=== PATIENT | male | born 1960 | race Caucasian/White ===

== ENCOUNTER 2022-03-06 14:50 | Emergency (ER) | payer OTHER ==
--- OUTSIDE RECORDS SUMMARY | 2022-03-06 15:02 | XMS REPORT | Continuity of Care Document ---
:1960 Author Organization [facility] t Address [address] [place] [address] Care Team Providers Name Role Phone Grupo Concepcion Primary Care Physician Unavailable ZI ANDREW Attending Clinician Unavailable ZI ANDREW Attending Clinician Unavailable JENNIFER ISAAC Attending Clinician Unavailable Jennifer Burrell Attending Clinician HARSH LLOYD Attending Clinician Unavailable Edouard Ponce Attending Clinician Unavailable CLAUDY STOCKTON Attending Clinician Unavailable Claudy Parra Attending Clinician Tc Perkins Attending Clinician Unavailable Chao Aguilar Attending Clinician Unavailable Tavo Otero Attending Clinician Unavailable Joan Carmen Attending Clinician Unavailable MARISABEL ORTIZ Attending Clinician Unavailable Alexa Mooer DO Attending Clinician Jenni ARAMBULA, Demetria Attending Clinician DEMETRIA THAYER Attending Clinician Unavailable Rebecca Hylton RN Attending Clinician Unavailable ARIES SEAY Attending Clinician Unavailable Neli Luciano Attending Clinician Unavailable Pita Madrid Attending Clinician Unavailable LEONARDO AVILA Attending Clinician Unavailable LEONARDO AVILA Attending Clinician Unavailable MEAGHAN RODRIGUEZ Attending Clinician Unavailable Meaghan Trevino Attending Clinician ZOHRA BOWER Attending Clinician Unavailable Zohra Bower MD Attending Clinician MAHESH NICOLAS Attending Clinician Unavailable Mahesh Nicolas MD Attending Clinician CURTIS BEE Attending Clinician Unavailable CURTIS BEE Attending Clinician Unavailable Jovanna Attending Clinician Unavailable Aries Seay MD Attending Clinician KEVIN ERICKSON Attending Clinician Unavailable Kevin Erickson MD Attending Clinician NAVJOT ABBOTT Attending Clinician Unavailable Navjot Abbott MD Attending Clinician David Noguera Attending Clinician Unavailable Charli Traore Attending Clinician Unavailable Tc Talavera Attending Clinician Unavailable Gypsy Brown Attending Clinician Unavailable ALEXANDER SCHAFER Attending Clinician Unavailable Alexander Schafer MD Attending Clinician Erik Alvarez RN Attending Clinician Unavailable JEFF BLANCO Attending Clinician Unavailable Jeff Fritz Attending Clinician ARMANDO HERNANDEZ Attending Clinician Unavailable Armando Hernandez MD Attending Clinician MIL CURRAN Attending Clinician Unavailable Mil Mora Attending Clinician Carlos Alberto Canales Attending Clinician Unavailable Rhona Pittman Attending Clinician Unavailable Afuwape, Lukuman O Attending Clinician Unavailable RAY FRIEND Attending Clinician Unavailable Afuwape, Lukuman O Attending Clinician Unavailable Afuwape, Lukuman O Attending Clinician Unavailable HEBER BUSH Attending Clinician Unavailable UNKNOWN, ATTENDING Attending Clinician Unavailable FAB WRIGHT Attending Clinician Unavailable ALANA ZHAO Attending Clinician Unavailable Davonte Smalls Attending Clinician Unavailable JENNIFER ISAAC Admitting Clinician Unavailable Karla Lombardo Admitting Clinician Unavailable ALEXA MOORE Admitting Clinician Unavailable LEONARDO AVILA Admitting Clinician Unavailable MEAGHAN RODRIGUEZ Admitting Clinician Unavailable CURTIS BEE Admitting Clinician Unavailable Jovanna Admitting Clinician Unavailable KEVIN ERICKSON Admitting Clinician Unavailable Physician, No Primary or Family Admitting Clinician UnavailARMANDO Torrez Admitting Clinician Unavailable JEFF BLANCO Admitting Clinician Unavailable Min, Lukuman O Admitting Clinician Unavailable HEBER BUSH Admitting Clinician Unavailable FAB WRIGHT Admitting Clinician Unavailable ALANA ZHAO Admitting Clinician Unavailable Davonte Smalls Admitting Clinician Unavailable Payers Payer Name Policy Type Policy Number Effective Date Expiration Date daina [facility] [id number] 2014 00:00:00 Problems Condition Condition Condition Status Onset Resolution Last Treating Co mments Source Name Details Category Date Date Treatment Clinician Date Obesity Obesity Disease Active 2017-03 Univers (BMI (BMI 1-26 ity of 30-39.9) 30-39.9) 00:00: [place] 00 Medical Branch Other Other Disease Active Univers specified specified 2-19 ity of types of types of 00:00: [place] schizophre schizophre 00 Me dical rylan, rylan, Branch chronic chronic condition condition with acute with acute exacerbati exacerbati on on Essential Essential Disease Active Overview: Univers hypertensi hypertensi 2-19 [place] ity of on on 00:00: g of this [place] 00 note Medical might be Branch different from the original. ICD10 Diagnosis Term Acquisition Specialist Utility Allergies, Adverse Reactions, Alerts Allergy Allergy Status Severity Reaction(s) Onset Inactive Treating Comm ents Source Name Type Date Date Clinician aspirin DA Active [place] STOMACH 2021-1 [facility] 1-28 Clear 00:00: [place] 00 [facility] aspirin DA Active [place] STOMACH 2021-03 [facility] UPSET 1-18 Clear 00:00: [place] 00 [facility] aspirin DA Active [place] STOMACH 2021- [facility] UPSET 1-15 [place] 00:00: d 00 [facility] aspirin DA Active [place] STOMACH 2021- [facility] UPSET 0-25 Clear 00:00: [place] 00 [facility] aspirin DA Active [place] STOMACH 2021-0 [facility] UPSET 9-12 Clear 00:00: [place] 00 [facility] aspirin DA Active [place] STOMACH 2021-0 [facility] UPSET 8-14 [place] 00:00: d 00 [facility] aspirin DA Active U V[facility] 2021-0 [facility] aspirin DA Active U Vomiting 2021-0 [facility] 6-08 00:00: 00 aspirin DA Active U Unknown 2021-0 [facility] 00 aspirin DA Active [place] STOMACH 2019-0 [facility] UPS[facility] 2-05 Clear 00:00: [place] 00 [facility] aspirin DA Active [place] 2019-0 [facility] 2-05 [place] 00:00: d 00 [facility] aspirin DA Active [place] 2017- [facility] 2-12 [place] 00:[facility]: d [facility] ASPIRIN DRUG Active Anaphylaxis 2006- Univ ers INGREDI 10-11 ity of 00:00: [place] 00 Medical Branch Aspirin Propensi Active Anaphylaxis Patient U nivers ty to 10-11 has been ity of adverse 00:00: given [place] reaction 00 NSAIDS Medical s including Branch Naproxen/ Ibuprofen in the past without allergic reaction. aspirin Drug Active [facility] Tylenol Drug Active [facility] aspirin Drug Active [facility] Tylenol Drug Active [facility] aspirin Drug Active [facility] Tylenol Drug Active [facility] aspirin Drug Active [facility] Tylenol Drug Active [facility] Social History Social Habit Start Date Stop Date Quantity Comments Source History of tobacco Cigarette Smoker University of use [place] [facility] History SDOH University o f Alcohol Frequency [place] M edical Branch History SDNE University o f Alcohol Std Drinks [place] [facility] History [facility] o f Alcohol Binge [place] [facility] al Branch Exposure to 2022-02-22 2022-03-04 Not sure University SARS-CoV-2 (event) 00:00:00 02:34:00 [facility] Alcohol intake 2022-03-04 2022-03-04 Current drinker Unive rsity of 00:00:00 00:00:00 of alcohol [facility] (finding) Branch Cigarettes smoked 2017-08-12 2017-08-12 [facility] ity of current (pack per 00:00:00 00:00:[address] 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 Clinician (SIG) Name Name acetaminorosey 2021-03 650mg 650 mg, U nivers en 03-04 Oral, ity of (TYLENOL) 10:45: 11:07 [place]CE[place] 650 00 :00 dose, On Medic al mg [place] [facility] 03/04/22 at 0445, ANTONIO bacitracin 2021-03 Yes [id number] Apply to Univers 500 2-10 affected ity of unit/gram 00:00: area(s) 4 [place] ointment 00 (four) Medical times Branch daily. bacitracin 2021-03 Yes [id number] Apply to Univers 500 2-10 affected ity of unit/gram 00:00: area(s) 4 [place] ointment 00 (four) Medical times Branch daily. bacitracin 2021-03 Yes [id number] Apply to Univers 500 2-10 affected ity of unit/gram 00:00: area(s) 4 [place] ointment 00 (four) Medical times Branch daily. amoxicillin 2021-03- No 1{tbl} 1 tablet, Univers -clavulanat 04-08 Oral, ity of e 03:15: 02:35 ONCE, 1 [place] (AUGMENTIN) 00 :00 dose, On Medi klever 875-125 mg [place] Branch per tablet 02/04/22 at 1 tablet 2114, Routine
Reason for Anti-Infec tive: Empiric Non-Surgic al Prophylaxi s
Durat ion of therapy: 72 hours acetaminoph 2021-03- No 650mg 650 mg, U nivers en 2-02-05 Oral, ity of (TYLENOL) 02:30: 02:35 [place]CE, 1 [place] tablet 650 00 :00 dose, On Medic al mg [place] Branch 02/04/22 at 2030, ANTONIO acetaminoph 2021-03 Yes [id number] 650mg Take 650 Univers en 2-01 mg by ity of (TYLENOL) 00:00: mouth 3 [place] 325 mg Cap 00 (three) Medica l times Branch daily as needed for Pain (scale 7-10). acetaminoph 2021-03 Yes [id number] 650mg Take 650 Univers en 2-01 mg by ity of (TYLENOL) 00:00: mouth 3 [place] 325 mg Cap 00 (three) Medica l times Branch daily as needed for Pain (scale 7-10). acetaminoph 2021-03 Yes [id number] 650mg Take 650 Univers en 2-01 mg by ity of (TYLENOL) 00:00: mouth 3 [place] 325 mg Cap 00 (three) Medica l times Branch daily as needed for Pain (scale 7-10). acetaminoph 2021-03 Yes [id number] 650mg Take 650 Univers en 2-01 mg by ity of (TYLENOL) 00:00: mouth 3 [place] 325 mg Cap 00 (three) Medica l times Branch daily as needed for Pain (scale 7-10). amoxicillin 2021-03- Yes [id number] 1{tbl} Take 1 Univers -clavulanat 2-02-15 tablet by it y of e 875-125 00:00: 05:59 mouth [place] mg per 00 :00 every 12 Medical tablet (twelve) Branch hours for 10 days. amoxicillin 2021-03- Yes [id number] 1{tbl} Take 1 Univers -clavulanat 2-03 18- tablet by it y of e 875-125 00:00: 05:59 mouth [place] mg per 00 :00 every 12 Medical tablet (twelve) Branch hours for 10 days. iopamidol 2021-03- No [id number] 100mL 100 mL, Univers (ISOVUE 03-12 Intravenou ity o f 370-500 mL) 23:15: 23:15 s, ONCE, 1 [place] injection 00 :00 dose, On Medica l 100 mL [facility] 01/10/22 at 1715, Routine benztropine 2021-03- No 2mg 2 mg, Univ ers (COGENTIN) 03-12 Oral, ity of tablet 2 mg 22:15: 22:59 [place]CE[place] 1 [place] :[place] dose, On Medical [place] 01/10/22 at 1615, Routine risperiDONE 2021-03- No 3mg 3 mg, Univ ers (RISPERDAL 03-12 Oral, ity of M-TAB) 21:30: 22:58 ONCE, 1 [place] disintegrat 00 :00 dose, On Medi klever ing tablet [place] Branch 3 mg 01/10/22 at 1530, ANTONIO acetaminoph 2021-03- No 650mg 650 mg, U nivers en 0-19 12-23 Oral, ity of (TYLENOL) 14:30: 16:00 ONCE, 1 [place] tablet 650 00 :00 dose, On Medic al mg Wed Branch 12/23/21 at 0930, ANTONIO lisinopriL 2021-03 Yes [id number] 20mg Take 1 U nivers 20 mg 0-19 tablet by ity of tablet 00:00: mouth in [place] 00 the Medical morning. Branch lisinopriL 2021-03 Yes [id number] 20mg Take 1 U nivers 20 mg 0-19 tablet by ity of tablet 00:00: mouth in [place] 00 the Medical morning. Branch lisinopriL 2021-03 Yes [id number] 20mg Take 1 U nivers 20 mg 0-19 tablet by ity of tablet 00:00: mouth in [place] 00 the Medical morning. [place] lisinopriL 2021-03 Yes [id number] 20mg Take 1 U nivers 20 mg 0-19 tablet by ity of tablet 00:00: mouth in [place] 00 the Medical morning. [place] lisinopriL 2021-03 Yes [id number] 20mg Take 1 U nivers 20 mg 0-19 tablet by ity of tablet 00:00: mouth in [place] 00 the Medical morning. [place] lisinopriL 2021-03 Yes [id number] 20mg Take 1 U nivers 20 mg 0-19 tablet by ity of tablet 00:00: mouth in [place] 00 the Medical morning. [place] lisinopriL 2021-03 Yes [id number] 20mg Take 1 U nivers 20 mg 0-19 tablet by ity of tablet 00:00: mouth in [place] 00 the Medical morning. [place] haloperidol 2021-03- 5mg 5 mg, Univ ers lactate 0-15 10-15 Intramuscu ity o f (HALDOL) 11:30: 11:03 [place]CE, [place] injection 5 00 :00 1 dose, On Me dical mg Sat [place] 12/19/21 at 0630, Routine divalproex 2021-03 Yes [id number] 250mg Take 1 Univers ER 0-15 tablet by ity of (DEPAKOTE 00:00: mouth [place] ER) 250 mg 00 every 24 Medic al 24 hr (twenty-fo Branch tablet ur) hours. divalproex 2021-03 Yes [id number] 250mg Take 1 Univers ER 0-15 tablet by ity of (DEPAKOTE 00:00: mouth [place] ER) 250 mg 00 every 24 Medic al 24 hr (twenty-fo Branch tablet ur) hours. divalproex 2021-03 Yes [id number] 250mg Take 1 Univers ER 0-15 tablet by ity of (DEPAKOTE 00:00: mouth [place] ER) 250 mg 00 every 24 Medic al 24 hr (twenty-fo Branch tablet ur) hours. divalproex 2021-03 Yes [id number] 250mg Take 1 Univers ER 0-15 tablet by ity of (DEPAKOTE 00:00: mouth [place] ER) 250 mg 00 every 24 Medic al 24 hr (twenty-fo Branch tablet ur) hours. divalproex 2021-03 Yes [id number] 250mg Take 1 Univers ER 0-15 tablet by ity of (DEPAKOTE 00:00: mouth [place] ER) 250 mg 00 every 24 Medic al 24 hr (twenty-fo Branch tablet ur) hours. divalproex 2021-03 Yes [id number] 250mg Take 1 Univers ER 0-15 tablet by ity of (DEPAKOTE 00:00: mouth [place] ER) 250 mg 00 every 24 Medic al 24 hr (twenty-fo Branch tablet ur) hours. lisinopriL 2021-03 Yes [id number] 20mg Take 1 U nivers 20 mg 0-15 tablet by ity of tablet 00:00: mouth in [place] 00 the Medical morning. Branch divalproex 2021-03 Yes [id number] 250mg Take 1 Univers ER 0-15 tablet by ity of (DEPAKOTE 00:00: mouth [place] ER) 250 mg 00 every 24 Medic al 24 hr (twenty-fo Branch tablet ur) hours. lisinopriL 2021-03 Yes [id number] 20mg Take 1 U nivers 20 mg 0-15 tablet by ity of tablet 00:00: mouth in [place] 00 the Medical morning. Branch divalproex 2021-03 Yes [id number] 250mg Take 1 Univers ER 0-15 tablet by ity of (DEPAKOTE 00:00: mouth [place] ER) 250 mg 00 every 24 Medic al 24 hr (twenty-fo Branch tablet ur) hours. divalproex 2021-03 Yes [id number] 250mg Take 1 Univers ER 0-15 tablet by ity of (DEPAKOTE 00:00: mouth [place] ER) 250 mg 00 every 24 Medic al 24 hr (twenty-fo Branch tablet ur) hours. lisinopriL 2021-03- No [id number] 20mg Take 1 Univers 20 mg 0-15 10-19 tablet by ity of tablet 00:00: 00:00 mouth in [place] 00 :00 the Medical morning. Branch acetaminoph 2021-03- No 1000mg 1,000 mg, Univers en 0-11 10-11 Oral, ity of (TYLENOL) 07:15: 07:48 ONCE, 1 [place] tablet 00 :00 dose, On Medical 1,000 mg Tue Branch 12/15/21 at 0215, ANTONIO acetaminoph 2021-03- No 1000mg 1,000 mg, Univers en 0-12-12 Oral, ity of (TYLENOL) 02:00: 02:32 ONCE, 1 [place] tablet 00 :00 dose, On Medical 1,000 mg Fri Branch 12/11/21 at 2100, Routine naproxen 2021-03- No 250mg 250 mg, Univ ers (NAPROSYN) 012-12 Oral, ity of tablet 250 01:45: 02:33 ONCE, 1 [place] mg 00 :00 dose, On Medical Fri Branch 12/11/21 at 2045, Routine naproxen 2021-03 Yes [id number] 220mg Take 1 Univers sodium 220 0-07 4106 capsule by ity of mg capsule 00:00: mouth in [place] 00 the Medical morning Branch and 1 capsule in the evening. naproxen 2021-03 Yes [id number] 220mg Take 1 Univers sodium 220 0-07 4106 capsule by ity of mg capsule 00:00: mouth in [place] 00 the Medical morning Branch and 1 capsule in the evening. naproxen 2021-03 Yes [id number] 220mg Take 1 Univers sodium 220 0-07 4106 capsule by ity of mg capsule 00:00: mouth in [place] 00 the Medical morning Branch and 1 capsule in the evening. naproxen 2021-03 Yes [id number] 220mg Take 1 Univers sodium 220 0-07 4106 capsule by ity of mg capsule 00:00: mouth in [place] 00 the Medical morning Branch and 1 capsule in the evening. naproxen 2021-03 Yes [id number] 220mg Take 1 Univers sodium 220 0-07 4106 capsule by ity of mg capsule 00:00: mouth in [place] 00 the Medical morning Branch and 1 capsule in the evening. naproxen 2021-03 Yes [id number] 220mg Take 1 Univers sodium 220 0-07 4106 capsule by ity of mg capsule 00:00: mouth in [place] 00 the Medical morning Branch and 1 capsule in the evening. naproxen 2021-03 Yes [id number] 220mg Take 1 Univers sodium 220 0-07 4106 capsule by ity of mg capsule 00:00: mouth in [place] 00 the Medical morning Branch and 1 capsule in the evening. naproxen 2021-03 Yes [id number] 220mg Take 1 Univers sodium 220 0-07 4106 capsule by ity of mg capsule 00:00: mouth in [place] 00 the Medical morning Branch and 1 capsule in the evening. naproxen 2021-03 Yes [id number] 220mg Take 1 Univers sodium 220 0-07 4106 capsule by ity of mg capsule 00:00: mouth in [place] 00 the Medical morning Branch and 1 capsule in the evening. naproxen 2021-03 Yes [id number] 220mg Take 1 Univers sodium 220 0-07 4106 capsule by ity of mg capsule 00:00: mouth in [place] 00 the Medical morning Branch and 1 capsule in the evening. naproxen 2021-03 Yes [id number] 220mg Take 1 Univers sodium 220 0-07 4106 capsule by ity of mg capsule 00:00: mouth in [place] 00 the Medical morning Branch and 1 capsule in the evening. mupirocin Yes Univers (BACTROBAN 12-01 ity of OINT) 2 % 13:00: skin 00 Medical ointment Branch HYDROcodone 2021- No 1{tbl} 1 tablet, Univers -acetaminop 12-01 Oral, ity of hen (NORCO 09:00: 09:43 ONCE, 1 [place] 5) 5-325 mg 00 :00 dose, On Medi klever tablet 1 Tue Branch tablet 12/01/21 at 0400, ANTONIO traMADoL 50 Yes [id number] 100mg Take 2 Uni vers mg tablet 9-27 tablets by ity of 00:00: mouth [place] 00 every 8 Medical (eight) Branch hours as needed for Pain (scale 7-10). Indication s: acute pain clotrimazol Yes [id number] Apply to Univers e 1 % -27 area(s) at ity of topical 00:00: bedtime. [place] cream 00 Apply to Medical low back Branch rash traMADoL 50 2021-0 Yes [id number] 100mg Take 2 Uni vers mg tablet -27 tablets by ity of 00:00: mouth [place] 00 every 8 Medical (eight) Branch hours as needed for Pain (scale 7-10). Indication s: acute pain clotrimazol 2021-0 Yes [id number] Apply to Univers e 1 % 9-27 area(s) at ity of topical 00:00: bedtime. [place] cream 00 Apply to Medical low back Branch rash traMADoL 50 2021-0 Yes [id number] 100mg Take 2 Uni vers mg tablet 9-27 tablets by ity of 00:00: mouth [place] 00 every 8 Medical (eight) Branch hours as needed for Pain (scale 7-10). Indication s: acute pain clotrimazol 2021-0 Yes [id number] Apply to Univers e 1 % 9-27 area(s) at ity of topical 00:00: bedtime. [place] cream 00 Apply to Medical low back Branch rash traMADoL 50 2021-0 Yes [id number] 100mg Take 2 Uni vers mg tablet 9-27 tablets by ity of 00:00: mouth [place] 00 every 8 Medical (eight) Branch hours as needed for Pain (scale 7-10). Indication s: acute pain clotrimazol 2021-0 Yes [id number] Apply to Univers e 1 % 9-27 area(s) at ity of topical 00:00: bedtime. [place] cream 00 Apply to Medical low back Branch rash traMADoL 50 2021-0 Yes [id number] 100mg Take 2 Uni vers mg tablet 9-27 tablets by ity of 00:00: mouth [place] 00 every 8 Medical (eight) Branch hours as needed for Pain (scale 7-10). Indication s: acute pain clotrimazol 2021-0 Yes [id number] Apply to Univers e 1 % 9-27 area(s) at ity of topical 00:00: bedtime. [place] cream 00 Apply to Medical low back Branch rash traMADoL 50 2021-0 Yes [id number] 100mg Take 2 Uni vers mg tablet 9-27 tablets by ity of 00:00: mouth [place] 00 every 8 Medical (eight) Branch hours as needed for Pain (scale 7-10). Indication s: acute pain clotrimazol 2021-0 Yes [id number] Apply to Univers e 1 % 9-27 area(s) at ity of topical 00:00: bedtime. [place] cream 00 Apply to Medical low back Branch rash traMADoL 50 2021-0 Yes [id number] 100mg Take 2 Uni vers mg tablet 9-27 tablets by ity of 00:00: mouth [place] 00 every 8 Medical (eight) Branch hours as needed for Pain (scale 7-10). Indication s: acute pain clotrimazol 2021-0 Yes [id number] Apply to Univers e 1 % 9-27 area(s) at ity of topical 00:00: bedtime. [place] cream 00 Apply to Medical low back Branch rash traMADoL 50 2021-0 Yes [id number] 100mg Take 2 Uni vers mg tablet 9-27 tablets by ity of 00:00: mouth [place] 00 every 8 Medical (eight) Branch hours as needed for Pain (scale 7-10). Indication s: acute pain clotrimazol 0 Yes [id number] Apply to Univers e 1 % 9-27 area(s) at ity of topical 00:00: bedtime. [place] cream 00 Apply to Medical low back Branch rash traMADoL 50 2021-0 Yes [id number] 100mg Take 2 Uni vers mg tablet 9-27 tablets by ity of 00:00: mouth [place] 00 every 8 Medical (eight) Branch hours as needed for Pain (scale 7-10). Indication s: acute pain clotrimazol 0 Yes [id number] Apply to Univers e 1 % 9-27 area(s) at ity of topical 00:00: bedtime. [place] cream 00 Apply to Medical low back Branch rash traMADoL 50 2021-0 Yes [id number] 100mg Take 2 Uni vers mg tablet 9-27 tablets by ity of 00:00: mouth [place] 00 every 8 Medical (eight) Branch hours as needed for Pain (scale 7-10). Indication s: acute pain clotrimazol 2021-0 Yes [id number] Apply to Univers e 1 % 9-27 area(s) at ity of topical 00:00: bedtime. [place] cream 00 Apply to Medical low back Branch rash traMADoL 50 2021-0 Yes [id number] 100mg Take 2 Uni vers mg tablet 9-27 tablets by ity of 00:00: mouth [place] 00 every 8 Medical (eight) Branch hours as needed for Pain (scale 7-10). Indication s: acute pain clotrimazol 2021-0 Yes [id number] Apply to Univers e 1 % 9-27 area(s) at ity of topical 00:00: bedtime. [place] cream 00 Apply to Medical low back Branch rash traMADoL 50 2021-0 Yes [id number] 100mg Take 2 Uni vers mg tablet 9-27 tablets by ity of 00:00: mouth [place] 00 every 8 Medical (eight) Branch hours as needed for Pain (scale 7-10). Indication s: acute pain clotrimazol 2021-0 Yes [id number] Apply to Univers e 1 % 9-27 area(s) at ity of topical 00:00: bedtime. [place] cream 00 Apply to Medical low back Branch rash traMADoL 50 2021-0 Yes [id number] 100mg Take 2 Uni vers mg tablet 9-27 tablets by ity of 00:00: mouth [place] 00 every 8 Medical (eight) Branch hours as needed for Pain (scale 7-10). Indication s: acute pain clotrimazol 2021-0 Yes [id number] Apply to Univers e 1 % 9-27 area(s) at ity of topical 00:00: bedtime. [place] cream 00 Apply to Medical low back Branch rash traMADoL 50 2021-0 Yes [id number] 100mg Take 2 Uni vers mg tablet 9-27 tablets by ity of 00:00: mouth [place] 00 every 8 Medical (eight) Branch hours as needed for Pain (scale 7-10). Indication s: acute pain clotrimazol 2021-0 Yes [id number] Apply to Univers e 1 % 9-27 area(s) at ity of topical 00:00: bedtime. [place] cream 00 Apply to Medical low back Branch rash traMADoL 50 2021-0 Yes [id number] 100mg Take 2 Uni vers mg tablet 9-27 tablets by ity of 00:00: mouth [place] 00 every 8 Medical (eight) Branch hours as needed for Pain (scale 7-10). Indication s: acute pain clotrimazol 2021-0 Yes [id number] Apply to Univers e 1 % 9-27 area(s) at ity of topical 00:00: bedtime. [place] cream 00 Apply to Medical low back Branch rash traMADoL 50 2021-0 Yes [id number] 100mg Take 2 Uni vers mg tablet 9-27 tablets by ity of 00:00: mouth [place] 00 every 8 Medical (eight) Branch hours as needed for Pain (scale 7-10). Indication s: acute pain clotrimazol Yes [id number] Apply to Univers e 1 % 9-27 area(s) at ity of topical 00:00: bedtime. [place] cream 00 Apply to Medical low back Branch rash traMADoL 50 Yes [id number] 100mg Take 2 Uni vers mg tablet 9-27 tablets by ity of 00:00: mouth [place] 00 every 8 Medical (eight) Branch hours as needed for Pain (scale 7-10). Indication s: acute pain clotrimazol Yes [id number] Apply to Univers e 1 % 9-27 area(s) at ity of topical 00:00: bedtime. [place] cream 00 Apply to Medical low back Branch rash cyclobenzap 2021- No 10mg 10 mg, Uni vers rine 11-25 Oral, ity of (FLEXERIL) 11:30: 10:28 ONCE, 1 [place] tablet 10 00 :00 dose, On Medica l mg Wed Branch 11/25/21 at 0630, ANTONIO traMADoL 50 Yes [id number] 100mg Take 2 Uni vers mg tablet 9-21 tablets by ity of 00:00: mouth [place] 00 every 8 Medical (eight) Branch hours as needed for Pain (scale 7-10). Indication s: acute pain cyclobenzap 2021- No [id number] 10mg Take 1 [facility] rine 10 mg 11-25 [id number] tablet by ity of tablet 00:00: 04:59 mouth in [place] 00 :00 the Medical morning Branch and 1 tablet at noon and 1 tablet in the evening. Do all this for 5 days. traMADoL 50 2021- No [id number] 100mg Take 2 [facility] mg tablet 11-25 tablets by ity of 00:00: 00:00 mouth [place] 00 :00 every 8 Medical (eight) Branch hours as needed for Pain (scale 7-10). Indication s: acute pain Carisoprodo Yes [id number] 250mg Take 1 [facility] l ([facility]) 9-17 tablet by ity of 250 mg 00:00: mouth [place] tablet 00 every 8 Medical (eight) Branch hours as needed (muscle spasms). acetaminoph Yes [id number] 1000mg Take 2 [facility] en 500 mg 9-17 tablets by ity of tablet 00:00: mouth [place] 00 every 8 Medical (eight) Branch hours as needed for Pain. Carisoprodo 2022-0 Yes [id number] 250mg Take 1 [facility] ([facility]) 9-17 tablet by ity of 250 mg 00:00: mouth [place] tablet 00 every 8 Medical (eight) Branch hours as needed (muscle spasms). acetaminoph 2022-0 Yes [id number] 1000mg Take 2 [facility] en 500 mg 9-17 tablets by ity of tablet 00:00: mouth [place] 00 every 8 Medical (eight) Branch hours as needed for Pain. Carisoprodo 2022-0 Yes [id number] 250mg Take 1 [facility] ([facility]) 9-17 tablet by ity of 250 mg 00:00: mouth [place] tablet 00 every 8 Medical (eight) Branch hours as needed (muscle spasms). acetaminoph 2022-0 Yes [id number] 1000mg Take 2 [facility] en 500 mg 9-17 tablets by ity of tablet 00:00: mouth [place] 00 every 8 Medical (eight) Branch hours as needed for Pain. Carisoprodo 2-0 Yes [id number] 250mg Take 1 [facility] l ([facility]) 9-17 tablet by ity of 250 mg 00:00: mouth [place] tablet 00 every 8 Medical (eight) Branch hours as needed (muscle spasms). acetaminoph 2022-0 Yes [id number] 1000mg Take 2 [facility] en 500 mg 9-17 tablets by ity of tablet 00:00: mouth [place] 00 every 8 Medical (eight) Branch hours as needed for Pain. Carisoprodo 2022-0 Yes [id number] 250mg Take 1 [facility] ([facility]) 9-17 tablet by ity of 250 mg 00:00: mouth [place] tablet 00 every 8 Medical (eight) Branch hours as needed (muscle spasms). acetaminoph 2022-0 Yes [id number] 1000mg Take 2 [facility] en 500 mg 9-17 tablets by ity of tablet 00:00: mouth [place] 00 every 8 Medical (eight) Branch hours as needed for Pain. Carisoprodo 2022-0 Yes [id number] 250mg Take 1 [facility] ([facility]) 9-17 tablet by ity of 250 mg 00:00: mouth [place] tablet 00 every 8 Medical (eight) Branch hours as needed (muscle spasms). acetaminoph 2022-0 Yes [id number] 1000mg Take 2 [facility] en 500 mg 9-17 tablets by ity of tablet 00:00: mouth [place] 00 every 8 Medical (eight) Branch hours as needed for Pain. Carisoprodo 2022-0 Yes [id number] 250mg Take 1 [facility] ([facility]) 9-17 tablet by ity of 250 mg 00:00: mouth [place] tablet 00 every 8 Medical (eight) Branch hours as needed (muscle spasms). acetaminoph 2022-0 Yes [id number] 1000mg Take 2 [facility] en 500 mg 9-17 tablets by ity of tablet 00:00: mouth [place] 00 every 8 Medical (eight) Branch hours as needed for Pain. Carisoprodo 2022-0 Yes [id number] 250mg Take 1 [facility] ([facility]) 9-17 tablet by ity of 250 mg 00:00: mouth [place] tablet 00 every 8 Medical (eight) Branch hours as needed (muscle spasms). acetaminoph 2-0 Yes [id number] 1000mg Take 2 [facility] en 500 mg 9-17 tablets by ity of tablet 00:00: mouth [place] 00 every 8 Medical (eight) Branch hours as needed for Pain. Carisoprodo 2-0 Yes [id number] 250mg Take 1 [facility] ([facility]) 9-17 tablet by ity of 250 mg 00:00: mouth [place] tablet 00 every 8 Medical (eight) Branch hours as needed (muscle spasms). acetaminoph 2022-0 Yes [id number] 1000mg Take 2 [facility] en 500 mg 9-17 tablets by ity of tablet 00:00: mouth [place] 00 every 8 Medical (eight) Branch hours as needed for Pain. Carisoprodo 2022-0 Yes [id number] 250mg Take 1 [facility] ([facility]) 9-17 tablet by ity of 250 mg 00:00: mouth [place] tablet 00 every 8 Medical (eight) Branch hours as needed (muscle spasms). acetaminoph 2022-0 Yes [id number] 1000mg Take 2 [facility] en 500 mg 9-17 tablets by ity of tablet 00:00: mouth [place] 00 every 8 Medical (eight) Branch hours as needed for Pain. Carisoprodo 2022-0 Yes [id number] 250mg Take 1 [facility] ([facility]) 9-17 tablet by ity of 250 mg 00:00: mouth [place] tablet 00 every 8 Medical (eight) Branch hours as needed (muscle spasms). acetaminoph 2022-0 Yes [id number] 1000mg Take 2 [facility] en 500 mg 9-17 tablets by ity of tablet 00:00: mouth [place] 00 every 8 Medical (eight) Branch hours as needed for Pain. Carisoprodo 2022-0 Yes [id number] 250mg Take 1 [facility] ([facility]) 9-17 tablet by ity of 250 mg 00:00: mouth [place] tablet 00 every 8 Medical (eight) Branch hours as needed (muscle spasms). acetaminoph 2022-0 Yes [id number] 1000mg Take 2 [facility] en 500 mg 9-17 tablets by ity of tablet 00:00: mouth [place] 00 every 8 Medical (eight) Branch hours as needed for Pain. Carisoprodo 2022-0 Yes [id number] 250mg Take 1 [facility] ([facility]) 9-17 tablet by ity of 250 mg 00:00: mouth [place] tablet 00 every 8 Medical (eight) Branch hours as needed (muscle spasms). acetaminoph 2-0 Yes [id number] 1000mg Take 2 [facility] en 500 mg 9-17 tablets by ity of tablet 00:00: mouth [place] 00 every 8 Medical (eight) Branch hours as needed for Pain. Carisoprodo 2022-0 Yes [id number] 250mg Take 1 [facility] ([facility]) 9-17 tablet by ity of 250 mg 00:00: mouth [place] tablet 00 every 8 Medical (eight) Branch hours as needed (muscle spasms). acetaminoph 2022-0 Yes [id number] 1000mg Take 2 [facility] en 500 mg 9-17 tablets by ity of tablet 00:00: mouth [place] 00 every 8 Medical (eight) Branch hours as needed for Pain. Carisoprodo 2022-0 Yes [id number] 250mg Take 1 [facility] ([facility]) 9-17 tablet by ity of 250 mg 00:00: mouth [place] tablet 00 every 8 Medical (eight) Branch hours as needed (muscle spasms). acetaminoph 2022-0 Yes [id number] 1000mg Take 2 [facility] en 500 mg 9-17 tablets by ity of tablet 00:00: mouth [place] 00 every 8 Medical (eight) Branch hours as needed for Pain. Carisoprodo 2022-0 Yes [id number] 250mg Take 1 [facility] ([facility]) 9-17 tablet by ity of 250 mg 00:00: mouth [place] tablet 00 every 8 Medical (eight) Branch hours as needed (muscle spasms). acetaminoph 2021-0 Yes [id number] 1000mg Take 2 [facility] en 500 mg 9-17 tablets by ity of tablet 00:00: mouth [place] 00 every 8 Medical (eight) Branch hours as needed for Pain. Carisoprodo 202-0 Yes [id number] 250mg Take 1 [facility] ([facility]) 9-17 tablet by ity of 250 mg 00:00: mouth [place] tablet 00 every 8 Medical (eight) Branch hours as needed (muscle spasms). acetaminoph 2021-0 Yes [id number] 1000mg Take 2 [facility] en 500 mg 9-17 tablets by ity of tablet 00:00: mouth [place] 00 every 8 Medical (eight) Branch hours as needed for Pain. Carisoprodo 2021-0 Yes [id number] 250mg Take 1 [facility] ([facility]) 9-17 tablet by ity of 250 mg 00:00: mouth [place] tablet 00 every 8 Medical (eight) Branch hours as needed (muscle spasms). acetaminoph 2021-0 Yes [id number] 1000mg Take 2 [facility] en 500 mg 9-17 tablets by ity of tablet 00:00: mouth [place] 00 every 8 Medical (eight) Branch hours as needed for Pain. Carisoprodo 2021-0 Yes [id number] 250mg Take 1 [facility] ([facility]) 9-17 tablet by ity of 250 mg 00:00: mouth [place] tablet 00 every 8 Medical (eight) Branch hours as needed (muscle spasms). acetaminoph 2021-0 Yes [id number] 1000mg Take 2 [facility] en 500 mg 9-17 tablets by ity of tablet 00:00: mouth [place] 00 every 8 Medical (eight) Branch hours as needed for Pain. OLANZapine 2021-2021- No 10mg 10 mg, [facility] ers (ZYPREXA) 11-12 Oral, ity of tablet 10 00:30: 00:00 ONCE, 1 [place] mg 00 :00 dose, On Medical Tue11/11/21 Branch at 1930, Routine traMADoL 0 2021- No 100mg 100 mg, [facility] ers (ULTRAM) 11-09 Oral, ONCE ity of tablet 100 08:30: 07:51 NOW, 1 [place] mg 00 :00 dose, On Medical 11/09/21 Branch at 0330, Routine cephALEXin No 500mg 500 mg, Un tal (KEFLEX) 11-09 Oral, ity of capsule 500 07:45: 06:39 ONCE, 1 [place] mg 00 :00 dose, On Medical Tue11/09/21 Branch at 0245, ANTONIO
Re ason for Anti-Infec tive: Documented Infection< br>Documen shirley Infection Site: Skin / Soft Tissue
Duration of Therapy: Other (see Comments) acetaminoph 2021- No 650mg 650 mg, U nivers en 11-09 Oral, ity of (TYLENOL) 06:45: 06:39 ONCE, 1 [place] tablet 650 00 :00 dose, On Medic al mg Tue11/09/21 Branch at 0145, ANTONIO traMADoL 50 Yes [id number] 100mg Take 2 [facility] vers mg tablet 11-09 tablets by ity of 00:00: mouth [place] 00 every 8 Medical (eight) Branch hours as needed for Pain (scale 7-10). Indication s: acute pain traMADoL 50 Yes [id number] 100mg Take 2 [facility] vers mg tablet -05 tablets by ity of 00:00: mouth [place] 00 every 8 Medical (eight) Branch hours as needed for Pain (scale 7-10). Indication s: acute pain traMADoL 50 Yes [id number] 100mg Take 2 [facility] vers mg tablet 9-05 tablets by ity of 00:00: mouth [place] 00 every 8 Medical (eight) Branch hours as needed for Pain (scale 7-10). Indication s: acute pain traMADoL 50 2021- No [id number] 100mg Take 2 [facility] mg tablet 11-09 tablets by ity of 00:00: 00:00 mouth [place] 00 :00 every 8 Medical (eight) Branch hours as needed for Pain (scale 7-10). Indication s: acute pain cephALEXin 2021- No [id number] 500mg Take 1 [facility] 500 mg 11-09 capsule by ity of capsule 00:00: 04:59 mouth in [place] 00 :00 the Medical morning Branch and 1 capsule at noon and 1 capsule in the evening. Do all this for 5 days. cephALEXin 2021- No [id number] 500mg Take 1 [facility] 500 mg 11-09 capsule by ity of capsule 00:00: 04:59 mouth in [place] 00 :00 the [facility] Branch and 1 capsule at noon and 1 capsule in the evening. Do all this for 5 days. OLANZapine Yes 10mg 10 mg, Unive rs (ZYPREXA) 10-09 Oral, ity of tablet 10 14:00: DAILY, [place] mg 00 First dose Medical on Tue Branch 10/09/21 at 0900, Until Discontinu ed, Routine NaCl 0.9% 2021- No 1000mL at 999 Uni vers (NS) bolus 10-09 0805 mL/hr, ity of infusion 11:30: 13:02 1,000 mL, [place] 1,000 mL 00 :00 IV Medical Infusion, Branch ONCE, 1 dose, On Tue10/09/21 at 0630, ANTONIO acetaminoph No 650mg 650 mg, U nivers en 10-0905 Oral, ity of (TYLENOL) 11:15: 11:35 ONCE, 1 [place] 650 00 :00 dose, On Medic al mg Tue10/09/21 Branch at 0615, ANTONIO morpHINE (2 No 4mg 4 mg, Slow [facility] mg/mL) 09-24 IV Push, ity of injection 4 16:45: 16:20 ONCE, 1 [place] mg 00 :00 dose, On Medical [facility] Branch 09/24/21 at 1145, STAT NaCl 0.9% 2021- No 1000mL at 999 Uni vers (NS) bolus 09-2421 mL/hr, ity of infusion 15:00: 15:20 1,000 mL, [place] 1,000 mL 00 :00 IV Medical Infusion, Branch ONCE, 1 dose, On [facility] 09/24/21 at 1000, STAT acetaminoph 2021- No 650mg 650 mg, U nivers en 09-24 Oral, ity of (TYLENOL) 14:00: 14:22 ONCE, 1 [place] tablet 650 00 :00 dose, On Medic al mg [facility] Branch 09/24/21 at 0900, ANTONIO acetaminoph 2021- No 1000mg 1,000 mg, [facility] en 09-07 Oral, ity of (TYLENOL) 21:45: 21:45 ONCE, 1 [place] tablet 00 :00 dose, On Medical 1,000 mg 09/07/21 Branc h at 1645, Routine ketorolac 2021- No 30mg 30 mg, Unive rs (TORADOL) 09-07 Intramuscu ity of injection 21:45: 21:45 [place], ONCE, [place] 30 mg 00 :00 1 dose, On Medical 09/07/21 Branch at 1645, Routine ibuprofen Yes [id number] 600mg Take 1 [facility] 600 mg 7-04 tablet by ity of tablet 00:00: mouth [place] 00 every 6 Medical (six) Branch hours as needed for Pain (scale 4-6). ibuprofen 0 Yes [id number] 600mg Take 1 [facility] 600 mg 7-04 tablet by ity of tablet 00:00: mouth [place] 00 every 6 Medical (six) Branch hours as needed for Pain (scale 4-6). ibuprofen 0 Yes [id number] 600mg Take 1 [facility] 600 mg 7-04 tablet by ity of tablet 00:00: mouth [place] 00 every 6 Medical (six) Branch hours as needed for Pain (scale 4-6). ibuprofen 2021-0 Yes [id number] 600mg Take 1 [facility] 600 mg 7-04 tablet by ity of tablet 00:00: mouth [place] 00 every 6 Medical (six) Branch hours as needed for Pain (scale 4-6). ibuprofen 2021-0 Yes [id number] 600mg Take 1 [facility] 600 mg 7-04 tablet by ity of tablet 00:00: mouth [place] 00 every 6 Medical (six) Branch hours as needed for Pain (scale 4-6). ibuprofen 2021-0 Yes [id number] 600mg Take 1 [facility] 600 mg 7-04 tablet by ity of tablet 00:00: mouth [place] 00 every 6 Medical (six) Branch hours as needed for Pain (scale 4-6). ibuprofen 2021-0 Yes [id number] 600mg Take 1 [facility] 600 mg 7-04 tablet by ity of tablet 00:00: mouth [place] 00 every 6 Medical (six) Branch hours as needed for Pain (scale 4-6). ibuprofen 2021-0 Yes [id number] 600mg Take 1 [facility] 600 mg 7-04 tablet by ity of tablet 00:00: mouth [place] 00 every 6 Medical (six) Branch hours as needed for Pain (scale 4-6). ibuprofen 2021-0 Yes [id number] 600mg Take 1 [facility] 600 mg 7-04 tablet by ity of tablet 00:00: mouth [place] 00 every 6 Medical (six) Branch hours as needed for Pain (scale 4-6). ibuprofen 2021- No [id number] 600mg Take 1 [facility] 600 mg 7-04 09-17 tablet by ity of tablet 00:00: 00:00 mouth [place] 00 :00 every 6 Medical (six) Branch hours as needed for Pain (scale 4-6). cephALEXin 2021- No [id number] 500mg Take 1 [facility] 500 mg 09-05 [id number] capsule by ity of capsule 00:00: 04:59 mouth 4 [place] 00 :00 (four) Medical times Branch daily for 7 days. cephALEXin 2021- No [id number] 500mg Take 1 [facility] 500 mg 09-05 [id number] capsule by ity of capsule 00:00: 04:59 mouth 4 [place] 00 :00 (four) Medical times Branch daily for 7 days. doxycycline 2020-0 Yes [id number] 100mg Take 1 [facility] hyclate 100 7-12 [id number] capsule by ity of mg capsule 00:00: mouth 2 [place] 00 (two) Medical times Branch daily. doxycycline 2020-0 Yes [id number] 100mg Take 1 [facility] hyclate 100 7-12 [id number] capsule by ity of mg capsule 00:00: mouth 2 [place] 00 (two) Medical times Branch daily. doxycycline 2020-0 Yes [id number] 100mg Take 1 [facility] hyclate 100 7-12 [id number] capsule by ity of mg capsule 00:00: mouth 2 [place] 00 (two) Medical times Branch daily. doxycycline 2020-0 Yes [id number] 100mg Take 1 [facility] hyclate 100 7-12 [id number] capsule by ity of mg capsule 00:00: mouth 2 [place] 00 (two) Medical times Branch daily. doxycycline 2020-0 Yes [id number] 100mg Take 1 [facility] hyclate 100 7-12 [id number] capsule by ity of mg capsule 00:00: mouth 2 [place] 00 (two) Medical times Branch daily. doxycycline 2020-0 Yes [id number] 100mg Take 1 [facility] hyclate 100 7-12 [id number] capsule by ity of mg capsule 00:00: mouth 2 [place] 00 (two) Medical times Branch daily. doxycycline 2020-0 Yes [id number] 100mg Take 1 [facility] hyclate 100 7-12 [id number] capsule by ity of mg capsule 00:00: mouth 2 [place] 00 (two) Medical times Branch daily. ibuprofen 2020-0 Yes [id number] 600mg Take 1 [facility] 600 mg 7-12 [id number] tablet by ity of tablet 00:00: mouth [place] 00 every 6 Medical (six) Branch hours as needed for Pain (scale 4-6). doxycycline 2020-0 Yes [id number] 100mg Take 1 [facility] hyclate 100 7-12 [id number] capsule by ity of mg capsule 00:00: mouth 2 [place] 00 (two) Medical times Branch daily. ibuprofen 2020-0 Yes [id number] 600mg Take 1 [facility] 600 mg 7-12 [id number] tablet by ity of tablet 00:00: mouth [place] 00 every 6 Medical (six) Branch hours as needed for Pain (scale 4-6). doxycycline 2020-0 Yes [id number] 100mg Take 1 [facility] hyclate 100 7-12 [id number] capsule by ity of mg capsule 00:00: mouth 2 [place] 00 (two) Medical times Branch daily. ibuprofen 2020-0 Yes [id number] 600mg Take 1 [facility] 600 mg 7-12 [id number] tablet by ity of tablet 00:00: mouth [place] 00 every 6 Medical (six) Branch hours as needed for Pain (scale 4-6). doxycycline 2020-0 Yes [id number] 100mg Take 1 [facility] hyclate 100 7-12 [id number] capsule by ity of mg capsule 00:00: mouth 2 [place] 00 (two) Medical times Branch daily. ibuprofen 2020-0 Yes [id number] 600mg Take 1 [facility] 600 mg 7-12 [id number] tablet by ity of tablet 00:00: mouth [place] 00 every 6 Medical (six) Branch hours as needed for Pain (scale 4-6). doxycycline 2020-0 Yes [id number] 100mg Take 1 [facility] hyclate 100 7-12 [id number] capsule by ity of mg capsule 00:00: mouth 2 [place] 00 (two) Medical times Branch daily. ibuprofen 2020-0 Yes [id number] 600mg Take 1 [facility] 600 mg 7-12 [id number] tablet by ity of tablet 00:00: mouth [place] 00 every 6 Medical (six) Branch hours as needed for Pain (scale 4-6). doxycycline 2020-0 Yes [id number] 100mg Take 1 [facility] hyclate 100 7-12 [id number] capsule by ity of mg capsule 00:00: mouth 2 [place] 00 (two) Medical times Branch daily. ibuprofen 2020-0 Yes [id number] 600mg Take 1 [facility] 600 mg 7-12 [id number] tablet by ity of tablet 00:00: mouth [place] 00 every 6 Medical (six) Branch hours as needed for Pain (scale 4-6). doxycycline 2020-0 Yes [id number] 100mg Take 1 [facility] hyclate 100 7-12 [id number] capsule by ity of mg capsule 00:00: mouth 2 [place] 00 (two) Medical times Branch daily. ibuprofen 2020-0 Yes [id number] 600mg Take 1 [facility] 600 mg 7-12 [id number] tablet by ity of tablet 00:00: mouth [place] 00 every 6 Medical (six) Branch hours as needed for Pain (scale 4-6). doxycycline 2020-0 Yes [id number] 100mg Take 1 [facility] hyclate 100 7-12 [id number] capsule by ity of mg capsule 00:00: mouth 2 [place] 00 (two) Medical times Branch daily. ibuprofen 2020-0 Yes [id number] 600mg Take 1 [facility] 600 mg 7-12 [id number] tablet by ity of tablet 00:00: mouth [place] 00 every 6 Medical (six) Branch hours as needed for Pain (scale 4-6). doxycycline 2020-0 Yes [id number] 100mg Take 1 [facility] hyclate 100 7-12 [id number] capsule by ity of mg capsule 00:00: mouth 2 [place] 00 (two) Medical times Branch daily. ibuprofen 2020-0 Yes [id number] 600mg Take 1 [facility] 600 mg 7-12 [id number] tablet by ity of tablet 00:00: mouth [place] 00 every 6 Medical (six) Branch hours as needed for Pain (scale 4-6). doxycycline 2020-0 Yes [id number] 100mg Take 1 [facility] hyclate 100 7-12 [id number] capsule by ity of mg capsule 00:00: mouth 2 [place] 00 (two) Medical times Branch daily. doxycycline 2020-0 Yes [id number] 100mg Take 1 [facility] hyclate 100 7-12 [id number] capsule by ity of mg capsule 00:00: mouth 2 [place] 00 (two) Medical times Branch daily. doxycycline 2020-0 Yes [id number] 100mg Take 1 [facility] hyclate 100 7-12 [id number] capsule by ity of mg capsule 00:00: mouth 2 [place] 00 (two) Medical times Branch daily. doxycycline 2020-0 Yes [id number] 100mg Take 1 [facility] hyclate 100 7-12 [id number] capsule by ity of mg capsule 00:00: mouth 2 [place] 00 (two) Medical times Branch daily. doxycycline 2020-0 Yes [id number] 100mg Take 1 [facility] hyclate 100 7-12 [id number] capsule by ity of mg capsule 00:00: mouth 2 [place] 00 (two) Medical times Branch daily. doxycycline 2020-0 Yes [id number] 100mg Take 1 [facility] hyclate 100 7-12 [id number] capsule by ity of mg capsule 00:00: mouth 2 [place] 00 (two) Medical times Branch daily. doxycycline 2020-0 Yes [id number] 100mg Take 1 [facility] hyclate 100 7-12 [id number] capsule by ity of mg capsule 00:00: mouth 2 [place] 00 (two) Medical times Branch daily. doxycycline 2020-0 Yes [id number] 100mg Take 1 [facility] hyclate 100 7-12 [id number] capsule by ity of mg capsule 00:00: mouth 2 [place] 00 (two) Medical times Branch daily. doxycycline 2020-0 Yes [id number] 100mg Take 1 [facility] hyclate 100 7-12 [id number] capsule by ity of mg capsule 00:00: mouth 2 [place] 00 (two) Medical times Branch daily. doxycycline 2020-0 Yes [id number] 100mg Take 1 [facility] hyclate 100 7-12 [id number] capsule by ity of mg capsule 00:00: mouth 2 [place] 00 (two) Medical times Branch daily. doxycycline 2020-0 Yes [id number] 100mg Take 1 [facility] hyclate 100 7-12 [id number] capsule by ity of mg capsule 00:00: mouth 2 [place] 00 (two) Medical times Branch daily. doxycycline 2020-0 Yes [id number] 100mg Take 1 [facility] hyclate 100 7-12 [id number] capsule by ity of mg capsule 00:00: mouth 2 [place] 00 (two) Medical times Branch daily. doxycycline 2020-0 Yes [id number] 100mg Take 1 [facility] hyclate 100 7-12 [id number] capsule by ity of mg capsule 00:00: mouth 2 [place] 00 (two) Medical times Branch daily. ibuprofen 2020-0 Yes [id number] 600mg Take 1 [facility] 600 mg 7-12 [id number] tablet by ity of tablet 00:00: mouth [place] 00 every 6 Medical (six) Branch hours as needed for Pain (scale 4-6). doxycycline 2020-0 Yes [id number] 100mg Take 1 [facility] hyclate 100 7-12 [id number] capsule by ity of mg capsule 00:00: mouth 2 [place] 00 (two) Medical times Branch daily. ibuprofen 2020-0 2022- No [id number] 600mg Take 1 [facility] 600 mg 7-12 -17 [id number] tablet by ity o f tablet 00:00: 00:00 mouth [place] 00 :00 every 6 Medical (six) Branch hours as needed for Pain (scale 4-6). ibuprofen 2020-0 Yes [id number] 600mg Take 1 [facility] 600 mg 5-19 [id number] tablet by ity of tablet 00:00: mouth [place] 00 every 6 Medical (six) Branch hours as needed for Pain (scale 4-6). ibuprofen 2020-0 Yes [id number] 600mg Take 1 [facility] 600 mg 5-19 [id number] tablet by ity of tablet 00:00: mouth [place] 00 every 6 Medical (six) Branch hours as needed for Pain (scale 4-6). ibuprofen 2020-0 Yes [id number] 600mg Take 1 [facility] 600 mg 5-19 [id number] tablet by ity of tablet 00:00: mouth [place] 00 every 6 Medical (six) Branch hours as needed for Pain (scale 4-6). ibuprofen 2020-0 Yes [id number] 600mg Take 1 [facility] 600 mg 5-19 [id number] tablet by ity of tablet 00:00: mouth [place] 00 every 6 Medical (six) Branch hours as needed for Pain (scale 4-6). ibuprofen 2020-0 Yes [id number] 600mg Take 1 [facility] 600 mg 5-19 [id number] tablet by ity of tablet 00:00: mouth [place] 00 every 6 Medical (six) Branch hours as needed for Pain (scale 4-6). ibuprofen 2020-0 Yes [id number] 600mg Take 1 [facility] 600 mg 5-19 [id number] tablet by ity of tablet 00:00: mouth [place] 00 every 6 Medical (six) Branch hours as needed for Pain (scale 4-6). ibuprofen 2020-0 Yes [id number] 600mg Take 1 [facility] 600 mg 5-19 [id number] tablet by ity of tablet 00:00: mouth [place] 00 every 6 Medical (six) Branch hours as needed for Pain (scale 4-6). ibuprofen 2020-0 Yes [id number] 600mg Take 1 [facility] 600 mg 5-19 [id number] tablet by ity of tablet 00:00: mouth [place] 00 every 6 Medical (six) Branch hours as needed for Pain (scale 4-6). ibuprofen 2020-0 Yes [id number] 600mg Take 1 [facility] 600 mg 5-19 [id number] tablet by ity of tablet 00:00: mouth [place] 00 every 6 Medical (six) Branch hours as needed for Pain (scale 4-6). ibuprofen 2020-0 Yes [id number] 600mg Take 1 [facility] 600 mg 5-19 [id number] tablet by ity of tablet 00:00: mouth [place] 00 every 6 Medical (six) Branch hours as needed for Pain (scale 4-6). ibuprofen 2020-0 2021- No [id number] 600mg Take 1 [facility] 600 mg 5-19 09-17 [id number] tablet by ity o f tablet 00:00: 00:00 mouth [place] 00 :00 every 6 Medical (six) Branch hours as needed for Pain (scale 4-6). traMADol 50 2018- Yes [id number] 50mg Take 1 [facility] mg tablet 2-29 tablet by ity o f 00:00: mouth [place] 00 every 8 Medical (eight) Branch hours as needed for Pain (scale 7-10). lisinopril 2018- Yes [id number] 20mg Take 1 U nivers 20 mg 2-29 tablet by ity of tablet 00:00: mouth [place] 00 daily. Medical Branch traMADol 50 2018-03 Yes [id number] 50mg Take 1 [facility] mg tablet 2-29 tablet by ity o f 00:00: mouth [place] 00 every 8 Medical (eight) Branch hours as needed for Pain (scale 7-10). lisinopril 2018-03 Yes [id number] 20mg Take 1 U nivers 20 mg 2-29 tablet by ity of tablet 00:00: mouth [place] 00 daily. Medical Branch traMADol 50 2018-03 Yes [id number] 50mg Take 1 [facility] mg tablet 2-29 tablet by ity o f 00:00: mouth [place] 00 every 8 Medical (eight) Branch hours as needed for Pain (scale 7-10). lisinopril 2018-03 Yes [id number] 20mg Take 1 U nivers 20 mg 2-29 tablet by ity of tablet 00:00: mouth [place] 00 daily. Medical Branch traMADol 50 2018-03 Yes [id number] 50mg Take 1 [facility] mg tablet 2-29 tablet by ity o f 00:00: mouth [place] 00 every 8 Medical (eight) Branch hours as needed for Pain (scale 7-10). lisinopril 2018-03 Yes [id number] 20mg Take 1 U nivers 20 mg 2-29 tablet by ity of tablet 00:00: mouth [place] 00 daily. Medical Branch traMADol 50 2018-03 Yes [id number] 50mg Take 1 [facility] mg tablet 2-29 tablet by ity o f 00:00: mouth [place] 00 every 8 Medical (eight) Branch hours as needed for Pain (scale 7-10). lisinopril 2018-03 Yes [id number] 20mg Take 1 U nivers 20 mg 2-29 tablet by ity of tablet 00:00: mouth [place] 00 daily. Medical Branch traMADol 50 2018-03 Yes [id number] 50mg Take 1 [facility] mg tablet 2-29 tablet by ity o f 00:00: mouth [place] 00 every 8 Medical (eight) Branch hours as needed for Pain (scale 7-10). lisinopril 2018- Yes [id number] 20mg Take 1 U nivers 20 mg 2-29 tablet by ity of tablet 00:00: mouth [place] 00 daily. Medical Branch traMADol 50 2018-03 Yes [id number] 50mg Take 1 Univers mg tablet 2-29 tablet by ity o f 00:00: mouth [place] 00 every 8 Medical (eight) Branch hours as needed for Pain (scale 7-10). lisinopril 2018-03 Yes [id number] 20mg Take 1 [facility] 20 mg 2-29 tablet by [facility] of tablet 00:00: mouth [place] 00 daily. [facility] traMADol 50 2018-03 Yes [id number] 50mg Take 1 [facility] mg tablet 2-29 tablet by [facility] o f 00:00: mouth [place] 00 every 8 Medical (eight) Branch hours as needed for Pain (scale 7-10). lisinopril 2018-03 Yes [id number] 20mg Take 1 [facility] 20 mg 2-29 tablet by [facility] of tablet 00:00: mouth [place] 00 daily. [facility] traMADol 50 2018-03 Yes [id number] 50mg Take 1 [facility] mg tablet 2-29 tablet by ity o f 00:00: mouth [place] 00 every 8 Medical (eight) Branch hours as needed for Pain (scale 7-10). lisinopril 2018-03 Yes [id number] 20mg Take 1 [facility] 20 mg 2-29 tablet by [facility]y of tablet 00:00: mouth [place] 00 daily. [facility] lisinopril 2018-03 Yes [id number] 20mg Take 1 [facility] 20 mg 2-29 tablet by [facility]y of tablet 00:00: mouth [place] 00 daily. [facility] lisinopril 2018-03 Yes [id number] 20mg Take 1 [facility] 20 mg 2-29 tablet by [facility]y of tablet 00:00: mouth [place] 00 daily. [facility] lisinopril 2018-03 Yes [id number] 20mg Take 1 [facility] 20 mg 2-29 tablet by [facility]y of tablet 00:00: mouth [place] 00 daily. [facility] lisinopril 2018-03 Yes [id number] 20mg Take 1 [facility] 20 mg 2-29 tablet by [facility]y of tablet 00:00: mouth [place] 00 daily. [facility] lisinopril 2018-03 Yes [id number] 20mg Take 1 [facility] 20 mg 2-29 tablet by [facility]y of tablet 00:00: mouth [place] 00 daily. [facility] lisinopril 2018-03 Yes [id number] 20mg Take 1 [facility] 20 mg 2-29 tablet by [facility]y of tablet 00:00: mouth [place] 00 daily. [facility] lisinopril 2018-03 Yes [id number] 20mg Take 1 [facility] 20 mg 2-29 tablet by [facility]y of tablet 00:00: mouth [place] 00 daily. [facility] lisinopril 2018-03 Yes [id number] 20mg Take 1 [facility] 20 mg 2-29 tablet by [facility] of tablet 00:00: mouth [place] 00 daily. [facility] lisinopril 2018-03 Yes [id number] 20mg Take 1 [facility] 20 mg 2-29 tablet by [facility] of tablet 00:00: mouth [place] 00 daily. [facility] lisinopril 2018-03 Yes [id number] 20mg Take 1 [facility] 20 mg 2-29 tablet by [facility]y of tablet 00:00: mouth [place] 00 daily. [facility] traMADol 50 2018-03 Yes [id number] 50mg Take 1 [facility] mg tablet 2-29 tablet by ity o f 00:00: mouth [place] 00 every 8 Medical (eight) Branch hours as needed for Pain (scale 7-10). lisinopril 2018-03 Yes [id number] 20mg Take 1 [facility] 20 mg 2-29 tablet by [facility] of tablet 00:00: mouth [place] 00 daily. [facility] lisinopril 2018-03- No [id number] 20mg Take 1 [facility] 20 mg 2-29 10-15 tablet by [facility] of tablet 00:00: 00:00 mouth [place] 00 :00 daily. [facility] traMADol 50 2018-03- No [id number] 50mg Take 1 [facility] mg tablet 2-29 09-17 tablet by ity of 00:00: 00:00 mouth [place] 00 :00 every 8 Medical (eight) Branch hours as needed for Pain (scale 7-10). acetaminoph Yes [id number] 1{tbl} Take 1 [facility] en-codeine 8-31 105 tablet by ity of (TYLENOL-CO 00:00: mouth [place] DEINE #3) 00 every 6 Medical 300-30 mg (six) Branch tablet hours as needed for Pain (scale 4-6). acetaminoph Yes [id number] 1{tbl} Take 1 [facility] en-codeine 8-31 105 tablet by ity of (TYLENOL-CO 00:00: mouth [place] DEINE #3) 00 every 6 Medical 300-30 mg (six) Branch tablet hours as needed for Pain (scale 4-6). acetaminoph Yes [id number] 1{tbl} Take 1 [facility] en-codeine 8-31 105 tablet by ity of (TYLENOL-CO 00:00: mouth [place] DEINE #3) 00 every 6 Medical 300-30 mg (six) Branch tablet hours as needed for Pain (scale 4-6). acetaminoph Yes [id number] 1{tbl} Take 1 [facility] en-codeine 8-31 105 tablet by ity of (TYLENOL-CO 00:00: mouth [place] DEINE #3) 00 every 6 Medical 300-30 mg (six) Branch tablet hours as needed for Pain (scale 4-6). acetaminoph Yes [id number] 1{tbl} Take 1 [facility] en-codeine 8-31 105 tablet by ity of (TYLENOL-CO 00:00: mouth [place] DEINE #3) 00 every 6 Medical 300-30 mg (six) Branch tablet hours as needed for Pain (scale 4-6). acetaminoph Yes [id number] 1{tbl} Take 1 [facility] en-codeine 8-31 105 tablet by ity of (TYLENOL-CO 00:00: mouth [place] DEINE #3) 00 every 6 Medical 300-30 mg (six) Branch tablet hours as needed for Pain (scale 4-6). acetaminoph Yes [id number] 1{tbl} Take 1 [facility] en-codeine 8-31 105 tablet by ity of (TYLENOL-CO 00:00: mouth [place] DEINE #3) 00 every 6 Medical 300-30 mg (six) Branch tablet hours as needed for Pain (scale 4-6). acetaminoph Yes [id number] 1{tbl} Take 1 [facility] en-codeine 8-31 105 tablet by ity of (TYLENOL-CO 00:00: mouth [place] DEINE #3) 00 every 6 Medical 300-30 mg (six) Branch tablet hours as needed for Pain (scale 4-6). acetaminoph Yes [id number] 1{tbl} Take 1 [facility] en-codeine 8-31 105 tablet by ity of (TYLENOL-CO 00:00: mouth [place] DEINE #3) 00 every 6 Medical 300-30 mg (six) Branch tablet hours as needed for Pain (scale 4-6). acetaminoph Yes [id number] 1{tbl} Take 1 [facility] en-codeine 8- 105 tablet by ity of (TYLENOL-CO 00:00: mouth [place] DEINE #3) 00 every 6 Medical 300-30 mg (six) Branch tablet hours as needed for Pain (scale 4-6). acetaminoph 2- No [id number] 1{tbl} Take 1 [facility] en-codeine 8- 09-17 105 tablet by ity of (TYLENOL-CO 00:00: 00:00 [place] DE[place] #3[place] 00 :00 every 6 Medical 300-30 mg (six) Branch tablet hours as needed for Pain (scale 4-6). COMBIVENT Yes [id number] 1{puff} INHALE 1 [facility] RESPIMAT 5-28 PUFF 4 ity of 20-100 00:00: (FOUR) [place] mcg/actuati 00 TIMES Medical on inhaler DAILY. Branch COMBIVENT Yes [id number] 1{puff} INHALE 1 [facility] RESPIMAT 5-28 PUFF 4 ity of 20-100 00:00: (FOUR) [place] mcg/actuati 00 TIMES Medical on inhaler DAILY. Branch COMBIVENT Yes [id number] 1{puff} INHALE 1 [facility] RESPIMAT 5-28 PUFF 4 ity of 20-100 00:00: (FOUR) [place] mcg/actuati 00 TIMES Medical on inhaler DAILY. Branch COMBIVENT Yes [id number] 1{puff} INHALE 1 [facility] RESPIMAT 5-28 PUFF 4 ity of 20-100 00:00: (FOUR) [place] mcg/actuati 00 TIMES Medical on inhaler DAILY. Branch COMBIVENT Yes [id number] 1{puff} INHALE 1 [facility] RESPIMAT 5-28 PUFF 4 ity of 20-100 00:00: (FOUR) [place] mcg/actuati 00 TIMES Medical on inhaler DAILY. Branch COMBIVENT Yes [id number] 1{puff} INHALE 1 [facility] RESPIMAT 5-28 PUFF 4 ity of 20-100 00:00: (FOUR) [place] mcg/actuati 00 TIMES Medical on inhaler DAILY. [place] COMBIVENT Yes [id number] 1{puff} INHALE 1 [facility] RESPIMAT 5-28 PUFF 4 ity of 20-100 00:00: (FOUR) [place] mcg/actuati 00 TIMES Medical on inhaler DAILY. [place] COMBRuffWireT Yes [id number] 1{puff} INHALE 1 [facility] RESPIMAT 5-28 PUFF 4 ity of 20-100 00:00: (FOUR) [place] mcg/actuati 00 TIMES Medical on inhaler DAILY. Branch COMBIVENT Yes [id number] 1{puff} INHALE 1 [facility] RESPIMAT 5-28 PUFF 4 ity of 20-100 00:00: (FOUR) [place] mcg/actuati 00 TIMES Medical on inhaler DAILY. Branch COMBRuffWireT Yes [id number] 1{puff} INHALE 1 [facility] RESPIMAT 5-28 PUFF 4 ity of 20-100 00:00: (FOUR) [place] mcg/actuati 00 TIMES Medical on inhaler DAILY. [place] COMBIVENT Yes [id number] 1{puff} INHALE 1 [facility] RESPIMAT 5-28 PUFF 4 ity of 20-100 00:00: (FOUR) [place] mcg/actuati 00 TIMES Medical on inhaler DAILY. [place] COMBIVENT Yes [id number] 1{puff} INHALE 1 [facility] RESPIMAT 5-28 PUFF 4 ity of 20-100 00:00: (FOUR) [place] mcg/actuati 00 TIMES Medical on inhaler DAILY. [place] COMBIVENT Yes [id number] 1{puff} INHALE 1 [facility] RESPIMAT 5-28 PUFF 4 ity of 20-100 00:00: (FOUR) [place] mcg/actuati 00 TIMES Medical on inhaler DAILY. Branch COMBIVENT Yes [id number] 1{puff} INHALE 1 [facility] RESPIMAT 5-28 PUFF 4 ity of 20-100 00:00: (FOUR) [place] mcg/actuati 00 TIMES Medical on inhaler DAILY. [place] COMBIVENT Yes [id number] 1{puff} INHALE 1 [facility] RESPIMAT 5-28 PUFF 4 ity of 20-100 00:00: (FOUR) [place] mcg/actuati 00 TIMES Medical on inhaler DAILY. [place] COMBIVENT Yes [id number] 1{puff} INHALE 1 [facility] RESPIMAT 5-28 PUFF 4 ity of 20-100 00:00: (FOUR) [place] mcg/actuati 00 TIMES Medical on inhaler DAILY. Branch COMBIVENT Yes [id number] 1{puff} INHALE 1 [facility] RESPIMAT 5-28 PUFF 4 ity of 20-100 00:00: (FOUR) [place] mcg/actuati 00 TIMES Medical on inhaler DAILY. Branch COMBIVENT Yes [id number] 1{puff} INHALE 1 [facility] RESPIMAT 5-28 PUFF 4 ity of 20-100 00:00: (FOUR) [place] mcg/actuati 00 TIMES Medical on inhaler DAILY. Branch COMBIVENT Yes [id number] 1{puff} INHALE 1 [facility] RESPIMAT 5-28 PUFF 4 ity of 20-100 00:00: (FOUR) [place] mcg/actuati 00 TIMES Medical on inhaler DAILY. Branch COMBIVENT Yes [id number] 1{puff} INHALE 1 [facility] RESPIMAT 5-28 PUFF 4 ity of 20-100 00:00: (FOUR) [place] mcg/actuati 00 TIMES Medical on inhaler DAILY. Branch COMBIVENT Yes [id number] 1{puff} INHALE 1 [facility] RESPIMAT 5-28 PUFF 4 ity of 20-100 00:00: (FOUR) [place] mcg/actuati 00 TIMES Medical on inhaler DAILY. Branch COMBIVENT Yes [id number] 1{puff} INHALE 1 [facility] RESPIMAT 5-28 PUFF 4 ity of 20-100 00:00: (FOUR) [place] mcg/actuati 00 TIMES Medical on inhaler DAILY. Branch COMBIVENT Yes [id number] 1{puff} INHALE 1 [facility] RESPIMAT 5-28 PUFF 4 ity of 20-100 00:00: (FOUR) [place] mcg/actuati 00 TIMES Medical on inhaler DAILY. Branch COMBIVENT Yes [id number] 1{puff} INHALE 1 [facility] RESPIMAT 5-28 PUFF 4 ity of 20-100 00:00: (FOUR) [place] mcg/actuati 00 TIMES Medical on inhaler DAILY. Branch COMBIVENT Yes [id number] 1{puff} INHALE 1 [facility] RESPIMAT 5-28 PUFF 4 ity of 20-100 00:00: (FOUR) [place] mcg/actuati 00 TIMES Medical on inhaler DAILY. Branch COMBIVENT 2019-0 Yes [id number] 1{puff} INHALE 1 [facility] RESPIMAT 5-28 PUFF 4 ity of 20-100 00:00: (FOUR) [place] mcg/actuati 00 TIMES Medical on inhaler DAILY. Branch COMBIVENT 2018-0 Yes [id number] 1{puff} INHALE 1 [facility] RESPIMAT 5-28 PUFF 4 ity of 20-100 00:00: (FOUR) [place] mcg/actuati 00 TIMES Medical on inhaler DAILY. Branch COMBIVENT 2018- Yes [id number] 1{puff} INHALE 1 [facility] RESPIMAT 5-28 PUFF 4 ity of 20-100 00:00: (FOUR) [place] mcg/actuati 00 TIMES Medical on inhaler DAILY. Branch COMBIVENT 2018- Yes [id number] 1{puff} INHALE 1 [facility] RESPIMAT 5-28 PUFF 4 ity of 20-100 00:00: (FOUR) [place] mcg/actuati 00 TIMES Medical on inhaler DAILY. Branch GABAPENTIN 2019-0 Yes [id number] TAKE 1 [facility] 300 mg 4-03 CAPSULE BY ity of capsule 00:00: MOUTH 3 [place] 00 TIMES Medical DAILY. Branch TITRATE UP SLOWLY SCHEDULED GABAPENTIN 2019-0 Yes [id number] TAKE 1 [facility] 300 mg 4-03 CAPSULE BY ity of capsule 00:00: MOUTH 3 [place] 00 TIMES Medical DAILY. Branch TITRATE UP SLOWLY SCHEDULED GABAPENTIN 2019-0 Yes [id number] TAKE 1 [facility] 300 mg 4-03 CAPSULE BY ity of capsule 00:00: MOUTH 3 [place] 00 TIMES Medical DAILY. Branch TITRATE UP SLOWLY SCHEDULED GABAPENTIN 2019-0 Yes [id number] TAKE 1 [facility] 300 mg 4-03 CAPSULE BY ity of capsule 00:00: MOUTH 3 [place] 00 TIMES Medical DAILY. Branch TITRATE UP SLOWLY SCHEDULED GABAPENTIN 2019-0 Yes [id number] TAKE 1 [facility] 300 mg 4-03 CAPSULE BY ity of capsule 00:00: MOUTH 3 [place] 00 TIMES Medical DAILY. Branch TITRATE UP SLOWLY SCHEDULED GABAPENTIN 2019-0 Yes [id number] TAKE 1 [facility] 300 mg 4-03 CAPSULE BY ity of capsule 00:00: MOUTH 3 [place] 00 TIMES Medical DAILY. Branch TITRATE UP SLOWLY SCHEDULED BACLOFEN Yes [id number] TAKE 1/2 [facility] mg tablet 4-03 TABLET BY ity o f 00:00: MOUTH 3 [place] 00 TIMES DAY Medical FOR Branch 3DAYS,THEN TAKE 1 TABLET BY MOUTH 3 TIMES A DAY GABAPENTIN Yes [id number] TAKE 1 [facility] 300 mg 4-03 CAPSULE BY ity of capsule 00:00: MOUTH 3 [place] 00 TIMES Medical DAILY. Branch TITRATE UP SLOWLY SCHEDULED BACLOFEN Yes [id number] TAKE 1/2 [facility] mg tablet 4-03 TABLET BY ity o f 00:00: MOUTH 3 [place] 00 TIMES DAY Medical FOR Branch 3DAYS,THEN TAKE 1 TABLET BY MOUTH 3 TIMES A DAY GABAPENTIN Yes [id number] TAKE 1 [facility] 300 mg 4-03 CAPSULE BY ity of capsule 00:00: MOUTH 3 [place] 00 TIMES Medical DAILY. Branch TITRATE UP SLOWLY SCHEDULED BACLOFEN Yes [id number] TAKE 1/2 [facility] mg tablet 4-03 TABLET BY ity o f 00:00: MOUTH 3 [place] 00 TIMES DAY Medical FOR Branch 3DAYS,THEN TAKE 1 TABLET BY MOUTH 3 TIMES A DAY GABAPENTIN 2018- Yes [id number] TAKE 1 [facility] 300 mg 4-03 CAPSULE BY ity of capsule 00:00: MOUTH 3 [place] 00 TIMES Medical DAILY. Branch TITRATE UP SLOWLY SCHEDULED BACLOFEN Yes [id number] TAKE 1/2 [facility] mg tablet 4-03 TABLET BY ity o f 00:00: MOUTH 3 [place] 00 TIMES DAY Medical FOR Branch 3DAYS,THEN TAKE 1 TABLET BY MOUTH 3 TIMES A DAY GABAPENTIN 2018- Yes [id number] TAKE 1 [facility] 300 mg 4-03 CAPSULE BY ity of capsule 00:00: MOUTH 3 [place] 00 TIMES Medical DAILY. Branch TITRATE UP SLOWLY SCHEDULED BACLOFEN Yes [id number] TAKE 1/2 [facility] mg tablet 4-03 TABLET BY ity o f 00:00: MOUTH 3 [place] 00 TIMES DAY Medical FOR Branch 3DAYS,THEN TAKE 1 TABLET BY MOUTH 3 TIMES A DAY GABAPENTIN 2018- Yes [id number] TAKE 1 [facility] 300 mg 4-03 CAPSULE BY ity of capsule 00:00: MOUTH 3 [place] 00 TIMES Medical DAILY. Branch TITRATE UP SLOWLY SCHEDULED BACLOFEN Yes [id number] TAKE 1/2 [facility] mg tablet 4-03 TABLET BY ity o f 00:00: MOUTH 3 [place] 00 TIMES DAY Medical FOR Branch 3DAYS,THEN TAKE 1 TABLET BY MOUTH 3 TIMES A DAY GABAPENTIN 2019-0 Yes [id number] TAKE 1 [facility] 300 mg 4-03 CAPSULE BY ity of capsule 00:00: MOUTH 3 [place] 00 TIMES Medical DAILY. Branch TITRATE UP SLOWLY SCHEDULED BACLOFEN 10 Yes [id number] TAKE 1/2 [facility] mg tablet 4-03 TABLET BY ity o f 00:00: MOUTH 3 [place] 00 TIMES DAY Medical FOR Branch 3DAYS,THEN TAKE 1 TABLET BY MOUTH 3 TIMES A DAY GABAPENTIN 2018- Yes [id number] TAKE 1 [facility] 300 mg 4-03 CAPSULE BY ity of capsule 00:00: MOUTH 3 [place] 00 TIMES Medical DAILY. Branch TITRATE UP SLOWLY SCHEDULED BACLOFEN 10 Yes [id number] TAKE 1/2 [facility] mg tablet 4-03 TABLET BY ity o f 00:00: MOUTH 3 [place] 00 TIMES DAY Medical FOR Branch 3DAYS,THEN TAKE 1 TABLET BY MOUTH 3 TIMES A DAY GABAPENTIN 2018- Yes [id number] TAKE 1 [facility] 300 mg 4-03 CAPSULE BY ity of capsule 00:00: MOUTH 3 [place] 00 TIMES Medical DAILY. Branch TITRATE UP SLOWLY SCHEDULED BACLOFEN Yes [id number] TAKE 1/2 [facility] mg tablet 4-03 TABLET BY ity o f 00:00: MOUTH 3 [place] 00 TIMES DAY Medical FOR Branch 3DAYS,THEN TAKE 1 TABLET BY MOUTH 3 TIMES A DAY GABAPENTIN 2018-0 Yes [id number] TAKE 1 [facility] 300 mg 4-03 CAPSULE BY ity of capsule 00:00: MOUTH 3 [place] 00 TIMES Medical DAILY. Branch TITRATE UP SLOWLY SCHEDULED GABAPENTIN 2019-0 Yes [id number] TAKE 1 [facility] 300 mg 4-03 CAPSULE BY ity of capsule 00:00: MOUTH 3 [place] 00 TIMES Medical DAILY. Branch TITRATE UP SLOWLY SCHEDULED GABAPENTIN 2019-0 Yes [id number] TAKE 1 [facility] 300 mg 4-03 CAPSULE BY ity of capsule 00:00: MOUTH 3 [place] 00 TIMES Medical DAILY. Branch TITRATE UP SLOWLY SCHEDULED GABAPENTIN 2019-0 Yes [id number] TAKE 1 [facility] 300 mg 4-03 CAPSULE BY ity of capsule 00:00: MOUTH 3 [place] 00 TIMES Medical DAILY. Branch TITRATE UP SLOWLY SCHEDULED GABAPENTIN 2019-0 Yes [id number] TAKE 1 [facility] 300 mg 4-03 CAPSULE BY ity of capsule 00:00: MOUTH 3 [place] 00 TIMES Medical DAILY. Branch TITRATE UP SLOWLY SCHEDULED GABAPENTIN 2018-0 Yes [id number] TAKE 1 [facility] 300 mg 4-03 CAPSULE BY ity of capsule 00:00: MOUTH 3 [place] 00 TIMES Medical DAILY. Branch TITRATE UP SLOWLY SCHEDULED GABAPENTIN 2018-0 Yes [id number] TAKE 1 [facility] 300 mg 4-03 CAPSULE BY ity of capsule 00:00: MOUTH 3 [place] 00 TIMES Medical DAILY. Branch TITRATE UP SLOWLY SCHEDULED GABAPENTIN 2018-0 Yes [id number] TAKE 1 [facility] 300 mg 4-03 CAPSULE BY ity of capsule 00:00: MOUTH 3 [place] 00 TIMES Medical DAILY. Branch TITRATE UP SLOWLY SCHEDULED GABAPENTIN 2018-0 Yes [id number] TAKE 1 [facility] 300 mg 4-03 CAPSULE BY ity of capsule 00:00: MOUTH 3 [place] 00 TIMES Medical DAILY. Branch TITRATE UP SLOWLY SCHEDULED GABAPENTIN 2018-0 Yes [id number] TAKE 1 [facility] 300 mg 4-03 CAPSULE BY ity of capsule 00:00: MOUTH 3 [place] 00 TIMES Medical DAILY. Branch TITRATE UP SLOWLY SCHEDULED GABAPENTIN 2018-0 Yes [id number] TAKE 1 [facility] 300 mg 4-03 CAPSULE BY ity of capsule 00:00: MOUTH 3 [place] 00 TIMES Medical DAILY. Branch TITRATE UP SLOWLY SCHEDULED GABAPENTIN 2018-0 Yes [id number] TAKE 1 [facility] 300 mg 4-03 CAPSULE BY ity of capsule 00:00: MOUTH 3 [place] 00 TIMES Medical DAILY. Branch TITRATE UP SLOWLY SCHEDULED BACLOFEN Yes [id number] TAKE 1/2 [facility] mg tablet 4-03 TABLET BY ity o f 00:00: MOUTH 3 [place] 00 TIMES DAY Medical FOR Branch 3DAYS,THEN TAKE 1 TABLET BY MOUTH 3 TIMES A DAY GABAPENTIN 2018- Yes [id number] TAKE 1 [facility] 300 mg 4-03 CAPSULE BY ity of capsule 00:00: MOUTH 3 [place] 00 TIMES Medical DAILY. Branch TITRATE UP SLOWLY SCHEDULED GABAPENTIN 2018-0 Yes [id number] TAKE 1 [facility] 300 mg 4-03 CAPSULE BY ity of capsule 00:00: MOUTH 3 [place] 00 TIMES Medical DAILY. Branch TITRATE UP SLOWLY SCHEDULED GABAPENTIN 2018-0 Yes [id number] TAKE 1 [facility] 300 mg 4-03 CAPSULE BY ity of capsule 00:00: MOUTH 3 [place] 00 TIMES Medical DAILY. Branch TITRATE UP SLOWLY SCHEDULED BACLOFEN 10 2- No [id number] TAKE 1/2 [facility] mg tablet 06-07 TABLET BY ity of 00:00: 00:00 MOUTH 3 [place] 00 :00 TIMES DAY Medical FOR Branch 3DAYS,THEN TAKE 1 TABLET BY MOUTH 3 TIMES A DAY PANTOPRAZOL Yes [id number] TAKE 1 [facility] E 40 mg EC 3-06 TABLET BY ity of tablet 00:00: MOUTH [place] 00 EVERY DAY Medical Branch PANTOPRAZOL Yes [id number] TAKE 1 [facility] E 40 mg EC 3-06 TABLET BY ity of tablet 00:00: MOUTH [place] 00 EVERY DAY Medical Branch PANTOPRAZOL Yes [id number] TAKE 1 [facility] E 40 mg EC 3-06 TABLET BY ity of tablet 00:00: MOUTH [place] 00 EVERY DAY Medical Branch PANTOPRAZOL Yes [id number] TAKE 1 [facility] E 40 mg EC 3-06 TABLET BY ity of tablet 00:00: MOUTH [place] 00 EVERY DAY Medical Branch PANTOPRAZOL Yes [id number] TAKE 1 [facility] E 40 mg EC 3-06 TABLET BY ity of tablet 00:00: MOUTH [place] 00 EVERY DAY Medical Branch PANTOPRAZOL Yes [id number] TAKE 1 [facility] E 40 mg EC 3-06 TABLET BY ity of tablet 00:00: MOUTH [place] 00 EVERY DAY Medical Branch PANTOPRAZOL Yes [id number] TAKE 1 [facility] E 40 mg EC 3-06 TABLET BY ity of tablet 00:00: MOUTH [place] 00 EVERY DAY Medical Branch PANTOPRAZOL Yes [id number] TAKE 1 [facility] E 40 mg EC 3-06 TABLET BY ity of tablet 00:00: MOUTH [place] 00 EVERY DAY Medical Branch PANTOPRAZOL 0 Yes [id number] TAKE 1 [facility] E 40 mg EC 3-06 TABLET BY ity of tablet 00:00: MOUTH [place] 00 EVERY DAY Medical Branch PANTOPRAZOL Yes [id number] TAKE 1 [facility] E 40 mg EC 3-06 TABLET BY ity of tablet 00:00: MOUTH [place] 00 EVERY DAY Medical Branch PANTOPRAZOL Yes [id number] TAKE 1 [facility] E 40 mg EC 3-06 TABLET BY ity of tablet 00:00: MOUTH [place] 00 EVERY DAY Medical Branch PANTOPRAZOL Yes [id number] TAKE 1 [facility] E 40 mg EC 3-06 TABLET BY ity of tablet 00:00: MOUTH [place] 00 EVERY DAY Medical Branch PANTOPRAZOL Yes [id number] TAKE 1 [facility] E 40 mg EC 3-06 TABLET BY ity of tablet 00:00: MOUTH EVERY DAY Medical Branch PANTOPRAZOL Yes [id number] TAKE 1 [facility] E 40 mg EC 3-06 TABLET BY ity of tablet 00:00: MOUTH EVERY DAY Medical Branch PANTOPRAZOL Yes [id number] TAKE 1 [facility] E 40 mg EC 3-06 TABLET BY ity of tablet 00:00: MOUTH EVERY DAY Medical Branch PANTOPRAZOL Yes [id number] TAKE 1 [facility] E 40 mg EC 3-06 TABLET BY ity of tablet 00:00: MOUTH EVERY DAY Medical Branch PANTOPRAZOL Yes [id number] TAKE 1 [facility] E 40 mg EC 3-06 TABLET BY ity of tablet 00:00: MOUTH EVERY DAY Medical Branch PANTOPRAZOL Yes [id number] TAKE 1 [facility] E 40 mg EC 3-06 TABLET BY ity of tablet 00:00: [facility] EVERY DAY Medical Branch PANTOPRAZOL Yes [id number] TAKE 1 [facility] E 40 mg EC 3-06 TABLET BY ity of tablet 00:00: [facility] EVERY DAY Medical Branch PANTOPRAZOL Yes [id number] TAKE 1 [facility] E 40 mg EC 3-06 TABLET BY ity of tablet 00:00: [facility] EVERY DAY Medical Branch PANTOPRAZOL 0 Yes [id number] TAKE 1 [facility] E 40 mg EC 3-06 TABLET BY ity of tablet 00:00: [facility] EVERY DAY Medical Branch PANTOPRAZOL 0 Yes [id number] TAKE 1 [facility] E 40 mg EC 3-06 TABLET BY ity of tablet 00:00: [facility] EVERY DAY Medical Branch PANTOPRAZOL Yes [id number] TAKE 1 [facility] E 40 mg EC 3-06 TABLET BY ity of tablet 00:00: [facility] EVERY DAY Medical Branch PANTOPRAZOL 0 Yes [id number] TAKE 1 [facility] E 40 mg EC 3-06 TABLET BY ity of tablet 00:00: [facility] EVERY DAY Medical Branch PANTOPRAZOL Yes [id number] TAKE 1 [facility] E 40 mg EC 3-06 TABLET BY ity of tablet 00:00: [facility] EVERY DAY Medical Branch PANTOPRAZOL 0 Yes [id number] TAKE 1 [facility] E 40 mg EC 3-06 TABLET BY ity of tablet 00:00: MOUTH EVERY DAY Medical Branch PANTOPRAZOL 2019-0 Yes [id number] TAKE 1 [facility] E 40 mg EC 3-06 TABLET BY ity of tablet 00:00: MOUTH [place] EVERY DAY Medical Branch PANTOPRAZOL 2019-0 Yes [id number] TAKE 1 [facility] E 40 mg EC 3-06 TABLET BY ity of tablet 00:00: MOUTH [place] EVERY DAY Medical Branch PANTOPRAZOL 2019-0 Yes [id number] TAKE 1 [facility] E 40 mg EC 3-06 TABLET BY ity of tablet 00:00: MOUTH [place] EVERY DAY Medical Branch haloperidol 2018-1 Yes Univer s decanoate 1-10 ity of 50 mg/mL 00:00: [place] injection 00 Medical Branch haloperidol 2018-1 Yes Univer s decanoate 1-10 ity of 50 mg/mL 00:00: [place] injection 00 Medical Branch haloperidol 2018-1 Yes Univer s decanoate 1-10 ity of 50 mg/mL 00:00: [place] injection 00 Medical Branch haloperidol 2018-1 Yes Univer s decanoate 1-10 ity of 50 mg/mL 00:00: [place] injection 00 Medical Branch haloperidol 2018-1 Yes Univer s decanoate 1-10 ity of 50 mg/mL 00:00: [place] injection 00 Medical Branch haloperidol 2018-1 Yes Univer s decanoate 1-10 ity of 50 mg/mL 00:00: [place] injection 00 Medical Branch haloperidol 2018-1 Yes Univer s decanoate 1-10 ity of 50 mg/mL 00:00: [place] injection 00 Medical Branch haloperidol 2018-1 Yes Univer s decanoate 1-10 ity of 50 mg/mL 00:00: [place] injection 00 Medical Branch haloperidol 2018-1 Yes Univer s decanoate 1-10 ity of 50 mg/mL 00:00: [place] injection 00 Medical Branch haloperidol 2018-1 Yes Univer s decanoate 1-10 ity of 50 mg/mL 00:00: [place] injection 00 Medical Branch haloperidol 2018-1 Yes Univer s decanoate 1-10 ity of 50 mg/mL 00:00: [place] injection 00 Medical Branch haloperidol 2018-1 Yes Univer s decanoate 1-10 ity of 50 mg/mL 00:00: [place] injection 00 Medical Branch haloperidol 2018-1 Yes Univer s decanoate 1-10 ity of 50 mg/mL 00:00: [place] injection 00 Medical Branch haloperidol 2018-1 Yes Univer s decanoate 1-10 ity of 50 mg/mL 00:00: [place] injection 00 Medical Branch haloperidol 2018-1 Yes Univer s decanoate 1-10 ity of 50 mg/mL 00:00: [place] injection 00 Medical Branch haloperidol 2018-1 Yes Univer s decanoate 1-10 ity of 50 mg/mL 00:00: [place] injection 00 Medical Branch haloperidol 2018-1 Yes Univer s decanoate 1-10 ity of 50 mg/mL 00:00: [place] injection 00 Medical Branch haloperidol 2018-1 Yes Univer s decanoate 1-10 ity of 50 mg/mL 00:00: [place] injection 00 Medical Branch haloperidol 2018-1 Yes Univer s decanoate 1-10 ity of 50 mg/mL 00:00: [place] injection 00 Medical Branch haloperidol 2018-1 Yes Univer s decanoate 1-10 ity of 50 mg/mL 00:00: [place] injection 00 Medical Branch haloperidol 2018-1 Yes Univer s decanoate 1-10 ity of 50 mg/mL 00:00: [place] injection 00 Medical Branch haloperidol 2018-1 Yes Univer s decanoate 1-10 ity of 50 mg/mL 00:00: [place] injection 00 Medical Branch haloperidol 2018-1 Yes Univer s decanoate 1-10 ity of 50 mg/mL 00:00: [place] injection 00 Medical Branch haloperidol 2018-1 Yes Univer s decanoate 1-10 ity of 50 mg/mL 00:00: [place] injection 00 Medical Branch haloperidol 2018-1 Yes Univer s decanoate 1-10 ity of 50 mg/mL 00:00: [place] injection 00 Medical Branch haloperidol 2018-1 Yes Univer s decanoate 1-10 ity of 50 mg/mL 00:00: [place] injection 00 Medical Branch haloperidol 2018-1 Yes Univer s decanoate 1-10 ity of 50 mg/mL 00:00: [place] injection 00 Medical Branch haloperidol 2018-1 Yes Univer s decanoate 1-10 ity of 50 mg/mL 00:00: [place] injection 00 Medical Branch haloperidol 2018-1 Yes Univer s decanoate 1-10 ity of 50 mg/mL 00:00: [place] injection 00 Medical Branch peg-electro Yes Take as [facility] vers lyte soln 8-23 directed ity of 236-22.74-6 00:00: before [place] .74 -5.86 00 colonoscop [facility] kle[facility] gram y Branch solution peg-electro Yes Take as Uni vers lyte soln 8-23 directed ity of 236-22.74-6 00:00[place] .[place] -5.86 00 colonoscop [facility]i klever gram y Branch solution peg-electro Yes Take as Uni vers lyte soln 8-23 directed ity of 236-22.74-6 00:00: [place] .[place] -5.86 00 colonoscop Medi klever gram y Branch solution peg-electro Yes Take as Uni vers lyte soln 8-23 directed ity of 236-22.74-6 00:00[place] .[place] -5.86 00 colonoscop Medi klever gram y Branch solution peg-electro Yes Take as [facility] vers lyte soln 8-23 directed ity of 236-22.74-6 00:[place] .74 -5.86 00 colonoscop [facility] gram y Branch solution peg-electro Yes Take as [facility] vers lyte soln 8-23 directed ity of 236-22.74-6 00:00: [place] .74 -5.86 00 colonoscop [facility] gram y Branch solution peg-electro Yes Take as [facility] vers lyte soln 8-23 directed ity of 236-22.74-6 00:00: [place] .74 -5.86 00 colonoscop [facility] gram y Branch solution peg-electro Yes Take as [facility] vers lyte soln 8-23 directed ity of 236-22.74-6 00:00: [place] .74 -5.86 00 colonoscop [facility] gram y Branch solution peg-electro Yes Take as [facility] vers lyte soln 8-23 directed ity of 236-22.74-6 00:00: [place] .74 -5.86 00 colonoscop [facility] gram y Branch solution peg-electro Yes Take as [facility] vers lyte soln 8-23 directed ity of 236-22.74-6 00:00: [place] .74 -5.86 00 colonoscop [facility] gram y Branch solution peg-electro Yes Take as [facility] vers lyte soln 8-23 directed ity of 236-22.74-6 00:00: [place] .74 -5.86 00 colonoscop [facility] gram y Branch solution peg-electro Yes Take as [facility] vers lyte soln 8-23 directed ity of 236-22.74-6 00:00: [place] .74 -5.86 00 colonoscop [facility] gram y Branch solution peg-electro Yes Take as [facility] vers lyte soln 8-23 directed ity of 236-22.74-6 00:00: [place] .74 -5.86 00 colonoscop [facility] gram y Branch solution peg-electro 0 Yes Take as [facility] vers lyte soln 8-23 directed ity of 236-22.74-6 00:00: [place] .[place] -.86 00 colonoscop [facility] gram y Branch solution peg-electro Yes Take as [facility] vers lyte soln 8-23 directed ity of 236-22.74-6 00:00: [place] .74 -5.86 00 colonoscop [facility] gram y Branch solution peg-electro 0 Yes Take as [facility] vers lyte soln 8-23 directed ity of 236-22.74-6 00:00: [place] .74 -5.86 00 colonoscop [facility] gram y Branch solution peg-electro 0 Yes Take as [facility] vers lyte soln 8-23 directed ity of 236-22.74-6 00:00: [place] .74 -5.86 00 colonoscop [facility] gram y Branch solution peg-electro 0 Yes Take as [facility] vers lyte soln 8-23 directed ity of 236-22.74-6 00:00: [place] .74 -5.86 00 colonoscop [facility] gram y Branch solution peg-electro 0 Yes Take as [facility] vers lyte soln 8-23 directed ity of 236-22.74-6 00:00: [place] .74 -5.86 00 colonoscop [facility] gram y Branch solution peg-electro 2018-0 Yes Take as [facility] vers lyte soln 8-23 directed ity of 236-22.74-6 00:00: [place] .74 -5.86 00 colonoscop [facility] gram y Branch solution peg-electro Yes Take as [facility] vers lyte soln 8-23 directed ity of 236-22.74-6 00:00: [place] .74 -5.86 00 colonoscop [facility] gram y Branch solution peg-electro Yes Take as [facility] vers lyte soln 8-23 directed ity of 236-22.74-6 00:00: [place] .74 -5.86 00 colonoscop [facility] gram y Branch solution peg-electro Yes Take as [facility] vers lyte soln 8-23 directed ity of 236-22.74-6 00:00: [place] .74 -5.86 00 colonoscop [facility] gram y Branch solution peg-electro Yes Take as [facility] vers lyte soln 8-23 directed ity of 236-22.74-6 00:00: [place] .74 -5.86 00 colonoscop [facility] solution peg-electro Yes Take as [facility] vers lyte soln 8-23 directed ity of 236-22.74-6 00:00: [place] .74 -5.86 00 colonoscop [facility] y [facility] solution peg-electro 0 Yes Take as [facility] vers lyte soln 8-23 directed ity of 236-22.74-6 00:00: [place] .74 -5.86 00 colonoscop [facility] y [facility] solution peg-electro Yes Take as [facility] vers lyte soln 8-23 directed ity of 236-22.74-6 00:00: [place] .74 -5.86 00 colonoscop [facility] y [facility] solution peg-electro 0 Yes Take as [facility] vers lyte soln 8-23 directed ity of 236-22.74-6 00:00: [place] .74 -5.86 00 colonoscop [facility] y [facility] solution peg-electro 0 Yes Take as [facility] vers lyte soln 8-23 directed ity of 236-22.74-6 00:00: [place] .74 -5.86 00 colonoscop [facility] solution atorvasta 2017- Yes [id number] 40mg Take 1 [facility] n 40 mg 3-22 tablet by ity of tablet 00:00: mouth at [place] 00 bedtime. Medical Branch atorvastati Yes [id number] 40mg Take 1 [facility] n 40 mg 3-22 tablet by ity of tablet 00:00: mouth at [place] 00 bedtime. Medical Branch atorvastati Yes [id number] 40mg Take 1 [facility] n 40 mg 3-22 tablet by ity of tablet 00:00: mouth at [place] 00 bedtime. [facility] Branch atorvastati Yes [id number] 40mg Take 1 [facility] n 40 mg 3-22 tablet by ity of tablet 00:00: mouth at [place] bedtime. Medical Branch atorvastati Yes [id number] 40mg Take 1 [facility] n 40 mg 3-22 tablet by ity of tablet 00:00: mouth at [place] [address] bedtime. Medical Branch atorvastati Yes [id number] 40mg Take 1 [facility] n 40 mg 3-22 tablet by ity of tablet 00:00: mouth at [place] [address] bedtime. Medical Branch atorvastati Yes [id number] 40mg Take 1 [facility] n 40 mg 3-22 tablet by ity of tablet 00:00: mouth at [place] [address] bedtime. Medical Branch atorvastati Yes [id number] 40mg Take 1 [facility] n 40 mg 3-22 tablet by ity of tablet 00:00: mouth at [place] [address] bedtime. Medical Branch atorvastati Yes [id number] 40mg Take 1 [facility] n 40 mg 3-22 tablet by ity of tablet 00:00: mouth at [place] [address] bedtime. Medical Branch atorvastati Yes [id number] 40mg Take 1 [facility] n 40 mg 3-22 tablet by ity of tablet 00:00: mouth at [place] [address] bedtime. Medical Branch atorvastati Yes [id number] 40mg Take 1 [facility] n 40 mg 3-22 tablet by ity of tablet 00:00: mouth at [place] [address] bedtime. Medical Branch atorvastati Yes [id number] 40mg Take 1 [facility] n 40 mg 3-22 tablet by ity of tablet 00:00: mouth at [place] bedtime. [facility] Branch atorvastati 2017-0 Yes [id number] 40mg Take 1 [facility] n 40 mg 3-22 tablet by ity of tablet 00:00: mouth at [place] bedtime. [facility] atorvasta 2017-0 Yes [id number] 40mg Take 1 [facility] n 40 mg 3-22 tablet by ity of tablet 00:00: mouth at [place] bedtime. [facility] atorvasta 2017-0 Yes [id number] 40mg Take 1 [facility] n 40 mg 3-22 tablet by ity of tablet 00:00: mouth at [place] bedtime. [facility] atorvasta 2017-0 Yes [id number] 40mg Take 1 [facility] n 40 mg 3-22 tablet by ity of tablet 00:00: mouth at [place] bedtime. [facility] atorvasta 0 Yes [id number] 40mg Take 1 [facility] n 40 mg 3-22 tablet by ity of tablet 00:00: mouth at [place] bedtime. [facility] atorvasta 0 Yes [id number] 40mg Take 1 [facility] n 40 mg 3-22 tablet by ity of tablet 00:00: mouth at [place] bedtime. [facility] atorvasta 0 Yes [id number] 40mg Take 1 [facility] n 40 mg 3-22 tablet by ity of tablet 00:00: mouth at [place] bedtime. [facility] atorvasta 2017-0 Yes [id number] 40mg Take 1 [facility] n 40 mg 3-22 tablet by ity of tablet 00:00: mouth at [place] [address] bedtime. Medical Branch atorvastati 2017-0 Yes [id number] 40mg Take 1 [facility] n 40 mg 3-22 tablet by ity of tablet 00:00: mouth at [place] bedtime. [facility] atorvastati 2018-0 Yes [id number] 40mg Take 1 [facility] n 40 mg 3-22 tablet by ity of tablet 00:00: mouth at [place] [address] bedtime. [facility] Branch atorvastati 2017-0 Yes [id number] 40mg Take 1 [facility] n 40 mg 3-22 tablet by ity of tablet 00:00: mouth at [place] [address] bedtime. Medical Branch atorvasta 2017-0 Yes [id number] 40mg Take 1 [facility] n 40 mg 3-22 tablet by ity of tablet 00:00: mouth at [place] [address] bedtime. [facility] Branch atorvastati Yes [id number] 40mg Take 1 [facility] n 40 mg 3-22 tablet by ity of tablet 00:00: mouth at [place] bedtime. [facility] Branch atorvastati Yes [id number] 40mg Take 1 [facility] n 40 mg 3-22 tablet by ity of tablet 00:00: mouth at [place] bedtime. [facility] Branch atorvastati Yes [id number] 40mg Take 1 [facility] n 40 mg 3-22 tablet by ity of tablet 00:00: mouth at [place] bedtime. [facility] Branch atorvastati Yes [id number] 40mg Take 1 [facility] n 40 mg 3-22 tablet by ity of tablet 00:00: mouth at [place] bedtime. [facility] Branch atorvastati Yes [id number] 40mg Take 1 [facility] n 40 mg 3-22 tablet by ity of tablet 00:00: mouth at [place] bedtime. Medical Branch nitroglycer Yes .4mg Univer s in 09-17 ity of (NITROSTAT) 20:37: [place] sublingual 48 Medical tablet 0.4 Branch mg nitroglycer Yes .4mg Univer s in 09-17 ity of (NITROSTAT) 20:37: [place] sublingual 48 Medical tablet 0.4 Branch mg nitroglycer Yes .4mg Univer s in 09-17 ity of (NITROSTAT) 20:37: [place] sublingual 48 Medical tablet 0.4 Branch mg nitroglycer 2021- No .4mg Unive rs in 09-17 0725 ity of (NITROSTAT) 20:37: 21:05 [place] sublingual 48 :35 Medical tablet 0.4 Branch mg acetaminoph Yes [id number] 1000mg Take 2 [facility] en 500 mg 3-02 tablets by ity of tablet 00:00: mouth [place] every 8 Medical (eight) Branch hours as needed for Pain. acetaminoph Yes [id number] 1000mg Take 2 [facility] en 500 mg 3-02 tablets by ity of tablet 00:00: mouth [place] every 8 Medical (eight) Branch hours as needed for Pain. acetaminoph 2017-0 Yes [id number] 1000mg Take 2 [facility] en 500 mg 3-02 tablets by ity of tablet 00:00: mouth [place] 00 every 8 Medical (eight) Branch hours as needed for Pain. acetaminoph 2016-0 Yes [id number] 1000mg Take 2 [facility] en 500 mg 3-02 tablets by ity of tablet 00:00: mouth [place] 00 every 8 Medical (eight) Branch hours as needed for Pain. acetaminoph 2016-0 Yes [id number] 1000mg Take 2 [facility] 500 mg 3-02 tablets by ity of tablet 00:00: mouth [place] 00 every 8 Medical (eight) Branch hours as needed for Pain. acetaminoph Yes [id number] 1000mg Take 2 [facility] en 500 mg 3-02 tablets by ity of tablet 00:00: mouth [place] 00 every 8 Medical (eight) Branch hours as needed for Pain. acetaminoph Yes [id number] 1000mg Take 2 [facility] en 500 mg 3-02 tablets by ity of tablet 00:00: mouth [place] 00 every 8 Medical (eight) Branch hours as needed for Pain. acetaminoph 2016-0 Yes [id number] 1000mg Take 2 [facility] en 500 mg 3-02 tablets by ity of tablet 00:00: mouth [place] 00 every 8 Medical (eight) Branch hours as needed for Pain. acetaminoph 2016-0 Yes [id number] 1000mg Take 2 [facility] en 500 mg 3-02 tablets by ity of tablet 00:00: mouth [place] 00 every 8 Medical (eight) Branch hours as needed for Pain. acetaminoph 2016- Yes [id number] 1000mg Take 2 [facility] en 500 mg 3-02 tablets by ity of tablet 00:00: mouth [place] 00 every 8 Medical (eight) Branch hours as needed for Pain. acetaminoph 2017-0 2022- No [id number] 1000mg Take 2 [facility] en 500 mg 3-02 09-17 tablets by ity of tablet 00:00: 00:00 mouth [place] 00 :00 every 8 Medical (eight) Branch hours as needed for Pain. OLANZapine 2016-0 Yes [id number] TAKE 1 U nivers (ZYPREXA) 6-07 TABLET BY ity o f 10 mg 00:00: MOUTH [place] tablet 00 TWICE A Medical DAY Branch OLANZapine 2016-0 Yes [id number] TAKE 1 U nivers (ZYPREXA) 6-07 TABLET BY ity o f 10 mg 00:00: MOUTH [place] tablet 00 TWICE A Medical DAY Branch OLANZapine 2016-0 Yes [id number] TAKE 1 U nivers (ZYPREXA) 6-07 TABLET BY ity o f 10 mg 00:00: MOUTH [place] tablet 00 TWICE A Medical DAY Branch OLANZapine 2016-0 Yes [id number] TAKE 1 U nivers (ZYPREXA) 6-07 TABLET BY ity o f 10 mg 00:00: MOUTH [place] tablet 00 TWICE A Medical DAY Branch OLANZapine 2016-0 Yes [id number] TAKE 1 U nivers (ZYPREXA) 6-07 TABLET BY ity o f 10 mg 00:00: MOUTH [place] tablet 00 TWICE A Medical DAY Branch OLANZapine 2016-0 Yes [id number] TAKE 1 U nivers (ZYPREXA) 6-07 TABLET BY ity o f 10 mg 00:00: MOUTH [place] tablet 00 TWICE A Medical DAY Branch OLANZapine 2016-0 Yes [id number] TAKE 1 U nivers (ZYPREXA) 6-07 TABLET BY ity o f 10 mg 00:00: MOUTH [place] tablet 00 TWICE A Medical DAY Branch OLANZapine 2016-0 Yes [id number] TAKE 1 U nivers (ZYPREXA) 6-07 TABLET BY ity o f 10 mg 00:00: MOUTH [place] tablet 00 TWICE A Medical DAY Branch OLANZapine 2016-0 Yes [id number] TAKE 1 U nivers (ZYPREXA) 6-07 TABLET BY ity o f 10 mg 00:00: MOUTH [place] tablet 00 TWICE A Medical DAY Branch OLANZapine 2016-0 Yes [id number] TAKE 1 U nivers (ZYPREXA) 6-07 TABLET BY ity o f 10 mg 00:00: MOUTH [place] tablet 00 TWICE A Medical DAY Branch OLANZapine 2016-0 Yes [id number] TAKE 1 U nivers (ZYPREXA) 6-07 TABLET BY ity o f 10 mg 00:00: MOUTH [place] tablet 00 TWICE A Medical DAY Branch OLANZapine 2016-0 Yes [id number] TAKE 1 U nivers (ZYPREXA) 6-07 TABLET BY ity o f 10 mg 00:00: MOUTH [place] tablet 00 TWICE A Medical DAY Branch OLANZapine 2016-0 Yes [id number] TAKE 1 U nivers (ZYPREXA) 6-07 TABLET BY ity o f 10 mg 00:00: MOUTH [place] tablet 00 TWICE A Medical DAY Branch OLANZapine 2016-0 Yes [id number] TAKE 1 U nivers (ZYPREXA) 6-07 TABLET BY ity o f 10 mg 00:00: MOUTH [place] tablet 00 TWICE A Medical DAY Branch OLANZapine 2016-0 Yes [id number] TAKE 1 U nivers (ZYPREXA) 6-07 TABLET BY ity o f 10 mg 00:00: MOUTH [place] tablet 00 TWICE A Medical DAY Branch OLANZapine 2016-0 Yes [id number] TAKE 1 U nivers (ZYPREXA) 6-07 TABLET BY ity o f 10 mg 00:00: MOUTH [place] tablet 00 TWICE A Medical DAY Branch OLANZapine 2016-0 Yes [id number] TAKE 1 U nivers (ZYPREXA) 6-07 TABLET BY ity o f 10 mg 00:00: MOUTH [place] tablet 00 TWICE A Medical DAY Branch OLANZapine 2016-0 Yes [id number] TAKE 1 U nivers (ZYPREXA) 6-07 TABLET BY ity o f 10 mg 00:00: MOUTH [place] tablet 00 TWICE A Medical DAY Branch OLANZapine 2016-0 Yes [id number] TAKE 1 U nivers (ZYPREXA) 6-07 TABLET BY ity o f 10 mg 00:00: MOUTH [place] tablet 00 TWICE A Medical DAY Branch OLANZapine 2016-0 Yes [id number] TAKE 1 U nivers (ZYPREXA) 6-07 TABLET BY ity o f 10 mg 00:00: MOUTH [place] tablet 00 TWICE A Medical DAY Branch OLANZapine 2016-0 Yes [id number] TAKE 1 U nivers (ZYPREXA) 6-07 TABLET BY ity o f 10 mg 00:00: MOUTH [place] tablet 00 TWICE A Medical DAY Branch OLANZapine 2016-0 Yes [id number] TAKE 1 U nivers (ZYPREXA) 6-07 TABLET BY ity o f 10 mg 00:00: MOUTH [place] tablet 00 TWICE A Medical DAY Branch OLANZapine 2016-0 Yes [id number] TAKE 1 U nivers (ZYPREXA) 6-07 TABLET BY ity o f 10 mg 00:00: MOUTH [place] tablet 00 TWICE A Medical DAY Branch OLANZapine 2016-0 Yes [id number] TAKE 1 U nivers (ZYPREXA) 6-07 TABLET BY ity o f 10 mg 00:00: MOUTH [place] tablet 00 TWICE A Medical DAY Branch OLANZapine 2016-0 Yes [id number] TAKE 1 U nivers (ZYPREXA) 6-07 TABLET BY ity o f 10 mg 00:00: MOUTH [place] tablet 00 TWICE A Medical DAY Branch OLANZapine 2016-0 Yes [id number] TAKE 1 U nivers (ZYPREXA) 6-07 TABLET BY ity o f 10 mg 00:00: MOUTH [place] tablet 00 TWICE A Medical DAY Branch OLANZapine 2016-0 Yes [id number] TAKE 1 U nivers (ZYPREXA) 6-07 TABLET BY ity o f 10 mg 00:00: MOUTH [place] tablet 00 TWICE A Medical DAY Branch OLANZapine 2016-0 Yes [id number] TAKE 1 U nivers (ZYPREXA) 6-07 TABLET BY ity o f 10 mg 00:00: MOUTH [place] tablet 00 TWICE A Medical DAY Branch OLANZapine 2016-0 Yes [id number] TAKE 1 U nivers (ZYPREXA) 6-07 TABLET BY ity o f 10 mg 00:00: MOUTH [place] tablet 00 TWICE A Medical DAY Branch divalproex 0 Yes [id number] TAKE 2 U nivers ER 5-25 TABLETS BY ity of (DEPAKOTE 00:00: MOUTH [place] ER) 500 mg 00 EVERY DAY Medi kle[facility] 24 hr AT BEDTIME Branch tablet divalproex 0 Yes [id number] TAKE 2 U nivers ER 5-25 TABLETS BY ity of (DEPAKOTE 00:00: MOUTH [place] ER) 500 mg 00 EVERY DAY [facility]i kle[facility] 24 hr AT BEDTIME Branch tablet divalproex 0 Yes [id number] TAKE 2 U nivers ER 5-25 TABLETS BY ity of (DEPAKOTE 00:00: MOUTH [place] ER) 500 mg 00 EVERY DAY [facility]i kle[facility] 24 hr AT BEDTIME Branch tablet divalproex 0 Yes [id number] TAKE 2 U nivers ER 5-25 TABLETS BY ity of (DEPAKOTE 00:00: MOUTH [place] ER) 500 mg 00 EVERY DAY [facility]i kle[facility] 24 hr AT BEDTIME Branch tablet divalproex 2015-0 Yes [id number] TAKE 2 U nivers ER 5-25 TABLETS BY ity of (DEPAKOTE 00:00: MOUTH [place] ER) 500 mg 00 EVERY DAY [facility]i kle[facility] 24 hr AT BEDTIME Branch tablet divalproex 0 Yes [id number] TAKE 2 U nivers ER 5-25 TABLETS BY ity of (DEPAKOTE 00:00: MOUTH [place] ER) 500 mg 00 EVERY DAY Medi kle[facility] 24 hr AT BEDTIME Branch tablet divalproex Yes [id number] TAKE 2 U nivers ER 5-25 TABLETS BY ity of (DEPAKOTE 00:00: MOUTH [place] ER) 500 mg 00 EVERY DAY Medi kle[facility] 24 hr AT BEDTIME Branch tablet divalproex Yes [id number] TAKE 2 U nivers ER 5-25 TABLETS BY ity of (DEPAKOTE 00:00: MOUTH [place] ER) 500 mg 00 EVERY DAY Medi kle[facility] 24 hr AT BEDTIME Branch tablet divalproex Yes [id number] TAKE 2 U nivers ER 5-25 TABLETS BY ity of (DEPAKOTE 00:00: MOUTH [place] ER) 500 mg 00 EVERY DAY Medi kle[facility] 24 hr AT BEDTIME Branch tablet divalproex Yes [id number] TAKE 2 U nivers ER 5-25 TABLETS BY ity of (DEPAKOTE 00:00: MOUTH [place] ER) 500 mg 00 EVERY DAY Medi kle[facility] 24 hr AT BEDTIME Branch tablet divalproex Yes [id number] TAKE 2 U nivers ER 5-25 TABLETS BY ity of (DEPAKOTE 00:00: MOUTH [place] ER) 500 mg 00 EVERY DAY Medi kle[facility] 24 hr AT BEDTIME Branch tablet divalproex Yes [id number] TAKE 2 U nivers ER 5-25 TABLETS BY ity of (DEPAKOTE 00:00: MOUTH [place] ER) 500 mg 00 EVERY DAY Medi kle[facility] 24 hr AT BEDTIME Branch tablet divalproex Yes [id number] TAKE 2 U nivers ER 5-25 TABLETS BY ity of (DEPAKOTE 00:00: MOUTH [place] ER) 500 mg 00 EVERY DAY Medi kle[facility] 24 hr AT BEDTIME Branch tablet divalproex Yes [id number] TAKE 2 U nivers ER 5-25 TABLETS BY ity of (DEPAKOTE 00:00: MOUTH [place] ER) 500 mg 00 EVERY DAY Medi kle[facility] 24 hr AT BEDTIME Branch tablet divalproex Yes [id number] TAKE 2 U nivers ER 5-25 TABLETS BY ity of (DEPAKOTE 00:00: MOUTH [place] ER) 500 mg 00 EVERY DAY Medi kle[facility] 24 hr AT BEDTIME Branch tablet divalproex Yes [id number] TAKE 2 U nivers ER 5-25 TABLETS BY ity of (DEPAKOTE 00:00: MOUTH [place] ER) 500 mg 00 EVERY DAY Medi kle[facility] 24 hr AT BEDTIME Branch tablet divalproex Yes [id number] TAKE 2 U nivers ER 5-25 TABLETS BY ity of (DEPAKOTE 00:00: MOUTH [place] ER) 500 mg 00 EVERY DAY Medi kle[facility] 24 hr AT BEDTIME Branch tablet divalproex Yes [id number] TAKE 2 U nivers ER 5-25 TABLETS BY ity of (DEPAKOTE 00:00: MOUTH [place] ER) 500 mg 00 EVERY DAY Medi kle[facility] 24 hr AT BEDTIME Branch tablet divalproex Yes [id number] TAKE 2 U nivers ER 5-25 TABLETS BY ity of (DEPAKOTE 00:00: MOUTH [place] ER) 500 mg 00 EVERY DAY Medi kle[facility] 24 hr AT BEDTIME Branch tablet divalproex Yes [id number] TAKE 2 U nivers ER 5-25 TABLETS BY ity of (DEPAKOTE 00:00: MOUTH [place] ER) 500 mg 00 EVERY DAY Medi kle[facility] 24 hr AT BEDTIME Branch tablet divalproex Yes [id number] TAKE 2 U nivers ER 5-25 TABLETS BY ity of (DEPAKOTE 00:00: MOUTH [place] ER) 500 mg 00 EVERY DAY Medi klever 24 hr AT BEDTIME Branch tablet divalproex Yes [id number] TAKE 2 U nivers ER 5-25 TABLETS BY ity of (DEPAKOTE 00:00: MOUTH [place] ER) 500 mg 00 EVERY DAY Medi klever 24 hr AT BEDTIME Branch tablet divalproex Yes [id number] TAKE 2 U nivers ER 5-25 TABLETS BY ity of (DEPAKOTE 00:00: MOUTH [place] ER) 500 mg 00 EVERY DAY Medi kle[facility] 24 hr AT BEDTIME Branch tablet divalproex Yes [id number] TAKE 2 U nivers ER 5-25 TABLETS BY ity of (DEPAKOTE 00:00: MOUTH [place] ER) 500 mg 00 EVERY DAY Medi kle[facility] 24 hr AT BEDTIME Branch tablet divalproex Yes [id number] TAKE 2 U nivers ER 5-25 TABLETS BY ity of (DEPAKOTE 00:00: MOUTH [place] ER) 500 mg 00 EVERY DAY Medi kle[facility] 24 hr AT BEDTIME Branch tablet divalproex 2015- Yes [id number] TAKE 2 U nivers ER 5-25 TABLETS BY ity of (DEPAKOTE 00:00: MOUTH [place] ER) 500 mg 00 EVERY DAY Medi kle[facility] 24 hr AT BEDTIME Branch tablet divalproex 2015- Yes [id number] TAKE 2 U nivers ER 5-25 TABLETS BY ity of (DEPAKOTE 00:00: MOUTH [place] ER) 500 mg 00 EVERY DAY Medi kle[facility] 24 hr AT BEDTIME Branch tablet divalproex 2015- Yes [id number] TAKE 2 U nivers ER 5-25 TABLETS BY ity of (DEPAKOTE 00:00: MOUTH [place] ER) 500 mg 00 EVERY DAY Medi kle[facility] 24 hr AT BEDTIME Branch tablet divalproex 2015- Yes [id number] TAKE 2 U nivers ER 5-25 TABLETS BY ity of (DEPAKOTE 00:00: MOUTH [place] ER) 500 mg 00 EVERY DAY Medi klever 24 hr AT BEDTIME Branch tablet Immunizations Ordered Filled Immunization Date Status Comments [facility] Immunization Name Name TD 2021-10-28 Completed [facility] 00:00:00 [facility] TDAP 2021-10-28 Completed University of 00:00:00 [facility] TDAP 2021-10-28 Completed University of 00:00:00 [facility] TDAP 2021-10-28 Completed University of 00:00:00 [facility] TDAP 2021-10-28 Completed University of 00:00:00 [facility] TDAP 2021-10-28 Completed University of 00:00:00 [facility] TDAP 2021-10-28 Completed University of 00:00:00 [facility] TDAP 2021-10-28 Completed University of 00:00:00 [facility] TDAP 2021-10-28 Completed [facility] of 00:00:00 [facility] TDAP 2021-10-28 Completed University of 00:00:00 [facility] TDAP 2021-10-28 Completed University of 00:00:00 [facility] TDAP 2021-10-28 Completed University of 00:00:00 [facility] TDAP 2021-10-28 Completed University of 00:00:00 [facility] TDAP 2021-10-28 Completed University of 00:00:00 [facility] TDAP 2021-10-28 Completed University of 00:00:00 [place] [facility] TDAP 2021-10-28 Completed [facility] of 00:00:00 [place] [facility] TDAP 2021-10-28 Completed [facility] of 00:00:00 [place] [facility] TDAP 2021-10-28 Completed [facility] of 00:00:00 [place] [facility] TDAP 2021-10-28 Completed [facility] of 00:00:00 [place] [facility] TDAP 2021-10-28 Completed [facility] of 00:00:00 [place] [facility] TDAP 2021-10-28 Completed [facility] of 00:00:00 [place] [facility] TDAP 2021-10-28 Completed [facility] of 00:00:00 [place] [facility] TDAP 2021-10-28 Completed [facility] of 00:00:00 [place] [facility] Td 2019-08-30 Completed [facility] of 00:00:00 [place] [facility] Td 2019-08-30 Completed [facility] of 00:00:00 [place] [facility] Td 2019-08-30 Completed [facility] of 00:00:00 [place] [facility] Td 2019-08-30 Completed [facility] of 00:00:00 [place] [facility] Td 2019-08-30 Completed [facility] of 00:00:00 [place] [facility] Td 2019-08-30 Completed University of 00:00:00 [facility] TD, NOS 2019-08-30 Completed University of 00:00:00 [place] [facility] Td 2019-08-30 Completed University of 00:00:00 [place] [facility] Td 2019-08-30 Completed University of 00:00:00 [place] [facility] Td 2019-08-30 Completed [facility] of 00:00:00 [place] [facility] Td 2019-08-30 Completed [facility] of 00:00:00 [place] [facility] Td 2019-08-30 Completed University of 00:00:00 [place] [facility] Td 2019-08-30 Completed [facility] of 00:00:00 [place] [facility] Td 2019-08-30 Completed [facility] of 00:00:00 [place] [facility] Td 2019-08-30 Completed [facility] of 00:00:00 [place] [facility] Td 2019-08-30 Completed [facility] of 00:00:00 [place] [facility] Td 2019-08-30 Completed [facility] of 00:00:00 [place] [facility] Td 2019-08-30 Completed [facility] of 00:00:00 [place] [facility] Td 2019-08-30 Completed [facility] of 00:00:00 [place] [facility] Td 2019-08-30 Completed [facility] of 00:00:00 [place] [facility] Td 2019-08-30 Completed [facility] of 00:00:00 [place] [facility] Td 2019-08-30 Completed [facility] of 00:00:00 [place] [facility] Td 2019-08-30 Completed [facility] of 00:00:00 [place] [facility] Td 2019-08-30 Completed [facility] of 00:00:00 [place] [facility] Td 2019-08-30 Completed [facility] of 00:00:00 [place] [facility] Td 2019-08-30 Completed [facility] of 00:00:00 [place] [facility] Td 2019-08-30 Completed [facility] of 00:00:00 [place] [facility] Td 2019-08-30 Completed University of 00:00:00 [place] [facility] Td 2019-08-30 Completed [facility] of 00:00:00 [facility] Influenza Virus 2018-01-04 Completed Universit y of Vaccine Quad .5 mL 00:00:00 [place] [facility] IM 6+ MO Branch Influenza Virus 2018-01-04 Completed Universit y of Vaccine [facility] .5 mL 00:00:00 [place] [facility] IM 6+ MO Branch Influenza Virus 2018-01-04 Completed Universit y of Vaccine [place] .5 mL 00:00:00 [place] [facility] IM 6+ MO Branch Influenza Virus 2018-01-04 Completed Universit y of Vaccine [place] .5 mL 00:00:00 [place] [facility] IM 6+ MO Branch Influenza Virus 2018-01-04 Completed Universit y of Vaccine [place] .5 mL 00:00:00 [place] [facility] IM 6+ MO Branch Influenza Virus 2018-01-04 Completed Universit y of Vaccine [facility] .5 mL 00:00:00 [place] [facility] IM 6+ MO Branch Influenza Virus 2018-01-04 Completed Universit y of Vaccine [place] .5 mL 00:00:00 [place] [facility] IM 6+ MO Branch Influenza Virus 2018-01-04 Completed Universit y of Vaccine [place] .5 mL 00:00:00 [place] [facility] IM 6+ MO Branch Influenza Virus 2018-01-04 Completed Universit y of Vaccine Quad .5 mL 00:00:00 [facility] Influenza Virus 2018-01-04 Completed [facility] Vaccine Quad .5 mL 00:00:00 [facility] Influenza Virus 2018-01-04 Completed [facility] .5 mL 00:00:00 [facility] Influenza Virus 2018-01-04 Completed [facility] .5 mL 00:00:00 [facility] Influenza Virus 2018-01-04 Completed [facility] .5 mL 00:00:00 [facility] Influenza Virus 2018-01-04 Completed [facility] of Vacc[facility] Quad .5 mL 00:00:00 [facility] Influenza Virus 2018-01-04 Completed [facility] Vaccine Quad .5 mL 00:00:00 [facility] Influenza Virus 2018-01-04 Completed [facility] of Vaccine Quad .5 mL 00:00:00 [facility] Influenza Virus 2018-01-04 Completed [facility] .5 mL 00:00:00 [facility] Influenza Virus 2018-01-04 Completed [facility] Vaccine Quad .5 mL 00:00:00 [facility] Influenza Virus 2018-01-04 Completed [facility] Vaccine Quad .5 mL 00:00:00 [facility] Influenza Virus 2018-01-04 Completed [facility] Vaccine Quad .5 mL 00:00:00 [facility] Influenza Virus 2018-01-04 Completed [facility] Vaccine Quad .5 mL 00:00:00 [facility] Influenza Virus 2018-01-04 Completed [facility] Quad .5 mL 00:00:00 [facility] Influenza Virus 2018-01-04 Completed [facility] Vacc[facility] Quad .5 mL 00:00:00 [facility] Influenza Virus 2018-01-04 Completed [facility] Quad .5 mL 00:00:00 [facility] Influenza Virus 2018-01-04 Completed [facility] Vaccine Quad .5 mL 00:00:00 [facility] Influenza Virus 2018-01-04 Completed [facility] Vacc[facility] Quad .5 mL 00:00:00 [facility] Influenza Virus 2018-01-04 Completed [facility] of Vacc[facility] Quad .5 mL 00:00:00 [facility] Influenza Virus 2018-01-04 Completed [facility] of [facility] Quad .5 mL 00:00:00 [facility] Influenza Virus 2018-01-04 Completed [facility] of Vaccine Quad .5 mL 00:00:00 [facility] Influenza Virus 2016-02-09 Completed [facility]it y of Vaccine Quad IM 3+ 00:00:00 [facility] Influenza Virus 2016-02-09 Completed [facility]it y of Vaccine Quad IM 3+ 00:00:00 [facility] Influenza Virus 2016-02-09 Completed [facility]it y of Vaccine Quad IM 3+ 00:00:00 [facility] Influenza Virus 2016-02-09 Completed [facility]it y of Vaccine Quad IM 3+ 00:00:00 [facility] Influenza Virus 2016-02-09 Completed [facility] of Vaccine [facility] IM 3+ 00:00:00 [facility] Influenza Virus 2016-02-09 Completed [facility]it y of Vaccine Quad IM 3+ 00:00:00 [facility] Influenza Virus 2016-02-09 Completed [facility]it y of Vaccine Quad IM 3+ 00:00:00 [facility] Influenza Virus 2016-02-09 Completed [facility]it y of Vaccine Quad IM 3+ 00:00:00 [facility] Influenza Virus 2016-02-09 Completed [facility] y of Vaccine Quad IM 3+ 00:00:00 [facility] Influenza Virus 2016-02-09 Completed [facility]it y of Vaccine Quad IM 3+ 00:00:00 [facility] Influenza Virus 2016-02-09 Completed [facility] y of Vaccine [facility] IM 3+ 00:00:00 [facility] Influenza Virus 2016-02-09 Completed [facility]it y of Vaccine Quad IM 3+ 00:00:00 [facility] Influenza Virus 2016-02-09 Completed [facility]it y of Vaccine Quad IM 3+ 00:00:00 [facility] Influenza Virus 2016-02-09 Completed [facility] y of Vaccine Quad IM 3+ 00:00:00 [facility] Influenza Virus 2016-02-09 Completed [facility]it y of Vaccine Quad IM 3+ 00:00:00 [facility] Influenza Virus 2016-02-09 Completed [facility]it y of Vaccine Quad IM 3+ 00:00:00 [facility] Influenza Virus 2016-02-09 Completed [facility] y of Vaccine Quad IM 3+ 00:00:00 [facility] Influenza Virus 2016-02-09 Completed [facility] y of Vaccine Quad IM 3+ 00:00:00 [facility] Influenza Virus 2016-02-09 Completed [facility]it y of Vaccine Quad IM 3+ 00:00:00 [facility] Influenza Virus 2016-02-09 Completed [facility] of Vaccine Quad IM 3+ 00:00:00 [facility] Influenza Virus 2016-02-09 Completed [facility]it y of Vaccine Quad IM 3+ 00:00:00 [facility] Influenza Virus 2016-02-09 Completed [facility]it y of Vaccine Quad IM 3+ 00:00:00 [facility] Influenza Virus 2016-02-09 Completed [facility]it y of Vaccine Quad IM 3+ 00:00:00 [facility] Influenza Virus 2016-02-09 Completed [facility] of Vaccine Quad IM 3+ 00:00:00 [facility] Influenza Virus 2016-02-09 Completed [facility]it y of Vaccine Quad IM 3+ 00:00:00 [facility] Influenza Virus 2016-02-09 Completed [facility] of Vaccine Quad IM 3+ 00:00:00 [facility] Influenza Virus 2016-02-09 Completed [facility] of Vaccine Quad IM 3+ 00:00:00 [facility] Influenza Virus 2016-02-09 Completed [facility]it y of Vaccine Quad IM 3+ 00:00:00 [facility] Influenza Virus 2016-02-09 Completed [facility]it y of Vaccine Quad IM 3+ 00:00:00 [facility] Pneumococcal 2015-10-23 Completed University o f Polysaccharide, 00:00:00 [facility] ical PPSV23 (PNEUMOVAX) Branch AP 2015-10-23 Completed University of 00:00:00 [facility] Pneumococcal 2015-10-23 Completed [facility] o f Polysaccharide, 00:00:00 [facility] PPSV23 (PNEUMOVAX) [facility] TDAP 2015-10-23 Completed [facility] of 00:00:00 [facility] Pneumococcal 2015-10-23 Completed University o f Polysaccharide, 00:00:00 [facility] PPSV23 (PNEUMOVAX) Branch TDAP 2015-10-23 Completed [facility] of 00:00:00 [facility] Pneumococcal 2015-10-23 Completed University o f Polysaccharide, 00:00:00 [facility] PPSV23 (PNEUMOVAX) Branch TDAP 2015-10-23 Completed [facility] of 00:00:00 [facility] Pneumococcal 2015-10-23 Completed University o f Polysaccharide, 00:00:00 [facility] PPSV23 (PNEUMOVAX) Branch TDAP 2015-10-23 Completed [facility] of 00:00:00 [facility] Pneumococcal 2015-10-23 Completed University o f Polysaccharide, 00:00:00 [facility] PPSV23 (PNEUMOVAX) Branch TDAP 2015-10-23 Completed [facility] of 00:00:00 [facility] Pneumococcal 2015-10-23 Completed University o f Polysaccharide, 00:00:00 [facility] PPSV23 (PNEUMOVAX) Branch TDAP 2015-10-23 Completed [facility] of 00:00:00 [facility] Pneumococcal 2015-10-23 Completed [facility] o f Polysaccharide, 00:00:00 [facility] PPSV23 (PNEUMOVAX) Branch TDAP 2015-10-23 Completed [facility] of 00:00:00 [facility] Pneumococcal 2015-10-23 Completed [facility] o f Polysaccharide, 00:00:00 [facility] PPSV23 (PNEUMOVAX) Branch TDAP 2015-10-23 Completed [facility] of 00:00:00 [facility] Pneumococcal 2015-10-23 Completed [facility] o f Polysaccharide, 00:00:00 [facility] PPSV23 (PNEUMOVAX) Branch TDAP 2015-10-23 Completed [facility] of 00:00:00 [facility] Pneumococcal 2015-10-23 Completed [facility] o f Polysaccharide, 00:00:00 [facility] PPSV23 (PNEUMOVAX) Branch TDAP 2015-10-23 Completed [facility] of 00:00:00 [facility] Pneumococcal 2015-10-23 Completed [facility] o f Polysaccharide, 00:00:00 [facility] PPSV23 (PNEUMOVAX) Branch TDAP 2015-10-23 Completed [facility] of 00:00:00 [facility] Pneumococcal 2015-10-23 Completed University o f Polysaccharide, 00:00:00 [facility] PPSV23 (PNEUMOVAX) Branch TDAP 2015-10-23 Completed [facility] of 00:00:00 [facility] Pneumococcal 2015-10-23 Completed University o f Polysaccharide, 00:00:00 [facility] PPSV23 (PNEUMOVAX) Branch TDAP 2015-10-23 Completed [facility] of 00:00:00 [facility] Pneumococcal 2015-10-23 Completed [facility] o f Polysaccharide, 00:00:00 [facility] PPSV23 (PNEUMOVAX) Branch TDAP 2015-10-23 Completed [facility] of 00:00:00 [facility] Pneumococcal 2015-10-23 Completed University o f Polysaccharide, 00:00:00 [facility] PPSV23 (PNEUMOVAX) Branch TDAP 2015-10-23 Completed [facility] of 00:00:00 [facility] Pneumococcal 2015-10-23 Completed [facility] o f Polysaccharide, 00:00:00 [facility] PPSV23 (PNEUMOVAX) Branch TDAP 2015-10-23 Completed [facility] of 00:00:00 [facility] Pneumococcal 2015-10-23 Completed [facility] o f Polysaccharide, 00:00:00 [facility] PPSV23 (PNEUMOVAX) Branch TDAP 2015-10-23 Completed [facility] of 00:00:00 [facility] Pneumococcal 2015-10-23 Completed [facility] o f Polysaccharide, 00:00:00 [facility] PPSV23 (PNEUMOVAX) Branch TDAP 2015-10-23 Completed [facility] of 00:00:00 [facility] Pneumococcal 2015-10-23 Completed University o f Polysaccharide, 00:00:00 [facility] PPSV23 (PNEUMOVAX) Branch TDAP 2015-10-23 Completed [facility] of 00:00:00 [facility] Pneumococcal 2015-10-23 Completed [facility] o f Polysaccharide, 00:00:00 [facility] PPSV23 (PNEUMOVAX) Branch TDAP 2015-10-23 Completed [facility] of 00:00:00 [facility] Pneumococcal 2015-10-23 Completed University o f Polysaccharide, 00:00:00 [facility] PPSV23 (PNEUMOVAX) Branch TDAP 2015-10-23 Completed [facility] of 00:00:00 [facility] Pneumococcal 2015-10-23 Completed [facility] o f Polysaccharide, 00:00:00 [facility] PPSV23 (PNEUMOVAX) Branch TDAP 2015-10-23 Completed [facility] of 00:00:00 [facility] Pneumococcal 2015-10-23 Completed University o f Polysaccharide, 00:00:00 [facility] PPSV23 (PNEUMOVAX) Branch TDAP 2015-10-23 Completed [facility] of 00:00:00 [facility] Pneumococcal 2015-10-23 Completed University o f Polysaccharide, 00:00:00 [facility] PPSV23 (PNEUMOVAX) Branch TDAP 2015-10-23 Completed [facility] of 00:00:00 [facility] Pneumococcal 2015-10-23 Completed University o f Polysaccharide, 00:00:00 [facility] PPSV23 (PNEUMOVAX) Branch TDAP 2015-10-23 Completed [facility] of 00:00:00 [facility] Pneumococcal 2015-10-23 Completed [facility] o f Polysaccharide, 00:00:00 [facility] PPSV23 (PNEUMOVAX) Branch TDAP 2015-10-23 Completed [facility] of 00:00:00 [facility] Pneumococcal 2015-10-23 Completed University o f Polysaccharide, 00:00:00 [facility] PPSV23 (PNEUMOVAX) Branch TDAP 2015-10-23 Completed [facility] of 00:00:00 [facility] Pneumococcal 2015-10-23 Completed University o f Polysaccharide, 00:00:00 [facility] PPSV23 (PNEUMOVAX) Branch TDAP 2015-10-23 Completed University of 00:00:00 [facility] Vital Signs Vital Name Observation Time Observation Value Comments Source Systolic blood 2022-03-04 08:39:00 110 mm[Hg] Univer sity of pressure [facility] Diastolic blood 2022-03-04 08:39:00 66 mm[Hg] Unive rsity of [facility] Heart rate 2022-03-04 08:39:00 103 /min [facility] Body temperature 2022-03-04 08:39:00 36.78 Bessy [facility] Respiratory rate 2022-03-04 08:39:00 20 /min [facility] Body weight 2022-03-04 08:39:00 76.204 kg [facility] BMI 2022-03-04 08:39:00 27.12 kg/m2 [facility] Oxygen saturation in 2022-03-04 08:39:00 99 /min [facility] Arterial blood by [facility] Pulse oximetry Branch Systolic blood 2022-02-18 20:11:00 137 mm[Hg] Univer sity of pressure [facility] Diastolic blood 2022-02-18 20:11:00 82 mm[Hg] Unive rsity of pressure [facility] Heart rate 2022-02-18 20:11:00 98 /min [facility] Body temperature 2022-02-18 20:11:00 36.56 Bessy [facility] Respiratory rate 2022-02-18 20:11:00 18 /min [facility] Body weight 2022-02-18 20:11:00 76.204 kg [facility] BMI 2022-02-18 20:11:00 27.12 kg/m2 [facility] Oxygen saturation in 2022-02-18 20:11:00 99 /min University of Arterial blood by [facility] Pulse oximetry Branch Systolic blood 2022-02-13 17:34:00 129 mm[Hg] Univer sity of pressure [facility] Diastolic blood 2022-02-13 17:34:00 63 mm[Hg] Unive rsity of pressure [facility] Heart rate 2022-02-13 17:34:00 77 /min [facility] Body temperature 2022-02-13 17:34:00 36.67 Bessy [facility] Respiratory rate 2022-02-13 17:34:00 20 /min [facility] Body weight 2022-02-13 17:34:00 76.204 kg [facility] BMI 2022-02-13 17:34:00 27.12 kg/m2 [facility] Oxygen saturation in 2022-02-13 17:34:00 98 /min [facility] of Arterial blood by [facility] Pulse oximetry Branch Systolic blood 2022-02-05 02:03:00 165 mm[Hg] Univer [facility]ity of [facility] Diastolic blood 2022-02-05 02:03:00 81 mm[Hg] Unive rsity of pressure [facility] Heart rate 2022-02-05 02:03:00 94 /min [facility] Body temperature 2022-02-05 02:03:00 37 Bessy [facility] Respiratory rate 2022-02-05 02:03:00 17 /min [facility] Oxygen saturation in 2022-02-05 02:03:00 99 /min [facility] by [facility] Systolic blood 2022-01-11 16:00:00 158 mm[Hg] Univer sity of pressure [facility] Diastolic blood 2022-01-11 16:00:00 70 mm[Hg] Unive rsity of pressure [facility] Heart rate 2022-01-11 16:00:00 78 /min [facility] Respiratory rate 2022-01-11 16:00:00 18 /min Univ ersity of [facility] Oxygen saturation in 2022-01-11 16:00:00 98 /min [facility] of Arterial blood by [place] [employer] [facility] Pulse oximetry Branch Body temperature 2022-01-11 10:34:00 36.56 Bessy [facility] Body height 2022-01-10 20:44:00 167.6 cm [facility] Body weight 2022-01-10 20:44:00 76.204 kg [facility] BMI 2022-01-10 20:44:00 27.12 kg/m2 [facility] Systolic blood 2021-12-23 16:05:00 151 mm[Hg] Univer sity of pressure [facility] Diastolic blood 2021-12-23 16:05:00 99 mm[Hg] Unive rsity of pressure [facility] Heart rate 2021-12-23 16:05:00 81 /min [facility] Body temperature 2021-12-23 16:05:00 36.94 Bessy [facility] Respiratory rate 2021-12-23 16:05:00 20 /min Univ ers[facility] Oxygen saturation in 2021-12-23 16:05:00 98 /min [facility] of Arterial blood by [place] [employer] [facility] Pulse oximetry Branch Body weight 2021-12-23 11:35:00 76.204 kg [facility] BMI 2021-12-23 11:35:00 27.12 kg/m2 [facility] Systolic blood 2021-12-21 19:42:00 178 mm[Hg] Univer sity of pressure [facility] Diastolic blood 2021-12-21 19:42:00 91 mm[Hg] Unive rsity of [facility] Heart rate 2021-12-21 19:42:00 88 /min [facility] Body temperature 2021-12-21 19:42:00 36.5 Bessy [facility] Respiratory rate 2021-12-21 19:42:00 16 /min Univ ers[facility] Body height 2021-12-21 19:42:00 167.6 cm [facility] Body weight 2021-12-21 19:42:00 72.576 kg [facility] BMI 2021-12-21 19:42:00 25.82 kg/m2 [facility] Oxygen saturation in 2021-12-21 19:42:00 96 /min [facility] by [facility] Systolic blood 2021-12-19 10:37:00 170 mm[Hg] Univer sity of pressure [facility] Diastolic blood 2021-12-19 10:37:00 89 mm[Hg] Unive rsity of [facility] Heart rate 2021-12-19 10:37:00 101 /min [facility] Body temperature 2021-12-19 10:37:00 37.17 Bessy [facility] Respiratory rate 2021-12-19 10:37:00 20 /min [facility] Body weight 2021-12-19 10:37:00 77.111 kg [facility] BMI 2021-12-19 10:37:00 25.85 kg/m2 [facility] Oxygen saturation in 2021-12-19 10:37:00 98 /min University of Arterial blood by [facility] Pulse oximetry Branch Systolic blood 2021-12-15 06:51:00 172 mm[Hg] Univer sity of pressure [facility] Diastolic blood 2021-12-15 06:51:00 90 mm[Hg] Unive rsity of pressure [facility] Heart rate 2021-12-15 06:51:00 87 /min [facility] Body temperature 2021-12-15 06:51:00 36.5 Bessy [facility] Respiratory rate 2021-12-15 06:51:00 18 /min Univ [facility] Body weight 2021-12-15 06:51:00 77.111 kg [facility] BMI 2021-12-15 06:51:00 25.85 kg/m2 [facility] Oxygen saturation in 2021-12-15 06:51:00 98 /min [facility] Arterial blood by [facility] P[facility]xim[facility] Systolic blood 2021-12-11 23:09:00 174 mm[Hg] Univer sity of pressure [facility] Diastolic blood 2021-12-11 23:09:00 106 mm[Hg] Unive rsity of pressure [facility] Heart rate 2021-12-11 23:09:00 97 /min [facility] Body temperature 2021-12-11 23:09:00 36.11 Bessy [facility] Respiratory rate 2021-12-11 23:09:00 22 /min [facility] Body weight 2021-12-11 23:09:00 83.915 kg [facility] BMI 2021-12-11 23:09:00 28.13 kg/m2 [facility] Oxygen saturation in 2021-12-11 23:09:00 100 /min University of Arterial blood by [facility] Pulse oximetry Branch Systolic blood 2021-12-06 16:06:00 160 mm[Hg] Univer sity of pressure [facility] Diastolic blood 2021-12-06 16:06:00 87 mm[Hg] Unive rsity of pressure [facility] Heart rate 2021-12-06 16:06:00 91 /min [facility] Body temperature 2021-12-06 16:06:00 36.72 Bessy [facility] Respiratory rate 2021-12-06 16:06:00 18 /min Univ [facility] Oxygen saturation in 2021-12-06 16:06:00 96 /min [facility] of Arterial blood by [facility] Pulse oximetry Branch Body temperature 2021-12-03 19:02:00 36.56 Bessy [facility] Body height 2021-12-03 19:02:00 172.7 cm [facility] Body weight 2021-12-03 19:02:00 68.992 kg [facility] BMI 2021-12-03 19:02:00 23.13 kg/m2 [facility] Systolic blood 2021-12-01 08:31:00 138 mm[Hg] Univer sity of pressure [facility] Diastolic blood 2021-12-01 08:31:00 85 mm[Hg] Unive rsity of pressure [facility] Heart rate 2021-12-01 08:31:00 102 /min [facility] Body temperature 2021-12-01 08:31:00 36.94 Bessy [facility] Respiratory rate 2021-12-01 08:31:00 16 /min [facility] Oxygen saturation in 2021-12-01 08:31:00 98 /min [facility] Arterial blood by [place] [facility] [facility] [facility] Pulse oximetry Branch Systolic blood 2021-11-25 09:47:00 144 mm[Hg] Univer sity of pressure [facility] Diastolic blood 2021-11-25 09:47:00 82 mm[Hg] Unive rsity of pressure [facility] Heart rate 2021-11-25 09:47:00 87 /min [facility] Body temperature 2021-11-25 09:47:00 36.83 Bessy [facility] Respiratory rate 2021-11-25 09:47:00 18 /min [facility] Body weight 2021-11-25 09:47:00 83.915 kg [facility] BMI 2021-11-25 09:47:00 28.13 kg/m2 [facility] Oxygen saturation in 2021-11-25 09:47:00 100 /min [facility] of Arterial blood by [place] [facility] Pulse oximetry Branch Systolic blood 2021-11-21 03:19:00 130 mm[Hg] Univer sity of [facility] Diastolic blood 2021-11-21 03:19:00 77 mm[Hg] Unive rsity of pressure [facility] Heart rate 2021-11-21 03:19:00 82 /min [facility] Body temperature 2021-11-21 03:19:00 36.61 Bessy [facility] Respiratory rate 2021-11-21 03:19:00 16 /min [facility] Body weight 2021-11-21 03:19:00 83.915 kg [facility] BMI 2021-11-21 03:19:00 28.13 kg/m2 [facility] Oxygen saturation in 2021-11-21 03:19:00 98 /min [facility] Arterial blood by [place] [facility] [facility] Pulse oximetry Branch Systolic blood 2021-11-11 21:26:00 139 mm[Hg] Univer sity of pressure [facility] Diastolic blood 2021-11-11 21:26:00 72 mm[Hg] Unive rsity of pressure [facility] Heart rate 2021-11-11 21:26:00 79 /min [facility] Body temperature 2021-11-11 21:26:00 36.94 Bessy [facility] Respiratory rate 2021-11-11 21:26:00 17 /min [facility] Oxygen saturation in 2021-11-11 21:26:00 98 /min [facility] Arterial blood by [place] [employer] [facility] Pulse oximetry Branch Body height 2021-11-11 17:41:00 172.7 cm [facility] Body weight 2021-11-11 17:41:00 84.369 kg [facility] BMI 2021-11-11 17:41:00 28.28 kg/m2 [facility] Systolic blood 2021-11-09 07:56:00 163 mm[Hg] Univer sity of [facility] Diastolic blood 2021-11-09 07:56:00 79 mm[Hg] Unive rsity of pressure [facility] Heart rate 2021-11-09 07:56:00 82 /min [facility] Respiratory rate 2021-11-09 07:56:00 18 /min [facility] Oxygen saturation in 2021-11-09 07:56:00 98 /min [facility] of Arterial blood by [facility] Pulse oximetry Branch Body temperature 2021-11-09 06:32:00 36.33 Bessy [facility] Body weight 2021-11-09 06:32:00 83.915 kg [facility] BMI 2021-11-09 06:32:00 28.13 kg/m2 [facility] Systolic blood 2021-10-29 00:02:22 172 mm[Hg] Univer sity of [facility] Diastolic blood 2021-10-29 00:02:22 78 mm[Hg] Unive rsity of pressure [facility] Heart rate 2021-10-29 00:02:22 89 /min [facility] Body temperature 2021-10-29 00:02:22 36.78 Bessy [facility] Respiratory rate 2021-10-29 00:02:22 18 /min [facility] Oxygen saturation in 2021-10-29 00:02:22 100 /min University of Arterial blood by [facility] Pulse oximetry Branch Body height 2021-10-28 18:00:00 172.7 cm [facility] Body weight 2021-10-28 18:00:00 84.369 kg [facility] BMI 2021-10-28 18:00:00 28.28 kg/m2 [facility] Systolic blood 2021-10-09 17:00:00 139 mm[Hg] Univer sity of [facility] Diastolic blood 2021-10-09 17:00:00 78 mm[Hg] Unive rsity of pressure [facility] Heart rate 2021-10-09 17:00:00 76 /min [facility] Body temperature 2021-10-09 17:00:00 36.61 Bessy [facility] Respiratory rate 2021-10-09 17:00:00 17 /min Univ [facility] [place] [facility] Oxygen saturation in 2021-10-09 17:00:00 99 /min University of Arterial blood by [facility] Pulse oximetry Branch Body weight 2021-10-09 10:04:00 84.823 kg [facility] [place] [facility] BMI 2021-10-09 10:04:00 29.29 kg/m2 [facility] [place] [facility] Systolic blood 2021-09-29 01:29:00 151 mm[Hg] [facility] [place] [facility] Diastolic blood 2021-09-29 01:29:00 92 mm[Hg] [facility] [place] [facility] Heart rate 2021-09-29 01:29:00 96 /min [facility] [place] [facility] Body temperature 2021-09-29 01:29:00 37.06 Bessy [facility] [place] [facility] Respiratory rate 2021-09-29 01:29:00 16 /min [facility] [place] [facility] Body weight 2021-09-29 01:29:00 84.823 kg [facility] [place] [facility] BMI 2021-09-29 01:29:00 29.29 kg/m2 [facility] [place] [facility] Oxygen saturation in 2021-09-29 01:29:00 99 /min [facility] of Arterial blood by [facility] Pulse oximetry Branch Systolic blood 2021-09-28 18:51:00 185 mm[Hg] [facility] [place] [facility] Diastolic blood 2021-09-28 18:51:00 103 mm[Hg] [facility] [place] [facility] Heart rate 2021-09-28 18:51:00 97 /min [facility] [place] [facility] Body temperature 2021-09-28 18:51:00 36.94 Bessy [facility] [place] [facility] Respiratory rate 2021-09-28 18:51:00 20 /min [facility] [place] [facility] Body weight 2021-09-28 18:51:00 84.369 kg [facility] [place] [facility] BMI 2021-09-28 18:51:00 29.13 kg/m2 [facility] [place] [facility] Oxygen saturation in 2021-09-28 18:51:00 97 /min [facility] Arterial blood by [facility] Pulse oximetry Branch Systolic blood 2021-09-24 15:23:00 182 mm[Hg] [facility] [place] [facility] Diastolic blood 2021-09-24 15:23:00 114 mm[Hg] [facility] [place] [facility] Heart rate 2021-09-24 15:23:00 87 /min [facility] [place] [facility] Respiratory rate 2021-09-24 15:23:00 16 /min [facility] [place] [facility] Oxygen saturation in 2021-09-24 15:23:00 100 /min [facility] Arterial blood by [facility] Pulse oximetry Branch Body temperature 2021-09-24 13:30:00 36.67 Bessy [facility] [place] [facility] Body weight 2021-09-24 13:30:00 84.369 kg [facility] [place] [facility] BMI 2021-09-24 13:30:00 29.13 kg/m2 [facility] [place] [facility] Systolic blood 2021-09-07 20:08:00 150 mm[Hg] [facility] [place] [facility] Diastolic blood 2021-09-07 20:08:00 76 mm[Hg] [facility] [place] [facility] Heart rate 2021-09-07 20:08:00 90 /min [facility] [place] [facility] Body temperature 2021-09-07 20:08:00 37.06 Bessy Univ [facility] [place] [facility] Respiratory rate 2021-09-07 20:08:00 19 /min Univ [facility] [place] [facility] Body weight 2021-09-07 20:08:00 84.823 kg [facility] [place] [facility] BMI 2021-09-07 20:08:00 29.29 kg/m2 [facility] [place] [facility] Oxygen saturation in 2021-09-07 20:08:00 98 /min [facility] Arterial blood by [facility] Pulse oximetry Branch Systolic blood 2021-09-05 05:58:00 160 mm[Hg] [facility] [place] [facility] Diastolic blood 2021-09-05 05:58:00 82 mm[Hg] [facility] [place] [facility] Heart rate 2021-09-05 05:58:00 90 /min [facility] [place] [facility] Body temperature 2021-09-05 05:58:00 36.61 Bessy Univ [facility] [place] [facility] Respiratory rate 2021-09-05 05:58:00 19 /min Univ [facility] [place] [facility] Body weight 2021-09-05 05:58:00 84.823 kg [facility] [place] [facility] BMI 2021-09-05 05:58:00 29.29 kg/m2 [facility] [place] [facility] Oxygen saturation in 2021-09-05 05:58:00 98 /min [facility] Arterial blood by [facility] Pulse oximetry Branch Height/Length 2021-03-24 12:49:44 169 cm Measured Height/Length 2021-03-24 12:49:42 169 cm Measured Height/Length 2021-03-24 12:49:36 169 cm Measured Height/Length 2019-12-16 13:00:16 Measured Procedures Procedure Date / Time Performing Clinician Source Performed CT HEAD WO CONTRAST 2022-03-04 10:13:53 Zi Andrew [facility] CT LUMBAR SPINE WO 2022-03-04 10:13:53 Zi Andrew [facility] [place] CONTRAST Medical Branch XR CHEST 2 VW 2022-03-04 10:05:41 [facility] o f [facility] CONSENT/REFUSAL FOR 2022-03-04 08:40:36 Doctor Unassigned, No [facility] [place] [facility] Name Medical Branch CT HEAD WO CONTRAST 2022-02-18 22:29:55 Jennifer Isaac [facility] CONSENT/REFUSAL FOR 2022-02-05 02:00:39 Doctor Unassigned, No [facility] [place] [facility] Name [facility] Branch URINE DRUG (IMMUNOASSAY) 2022-01-11 02:10:00 [facility] - COMPREHENSIVE DRUG Medical Bra nch SCREEN W/O REFLEX URINALYSIS 2022-01-11 02:06:00 Oscar [facility] [place] [facility] CT ABDOMEN PELVIS W 2022-01-10 22:23:21 [facility] CONTRAST [facility] Branch CT HEAD WO CONTRAST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 [facility]viewETHANOL2022-07-21 15:39:30 ALCOHOL<10mg/dL09/24/2021 10:39 AM CDTUT LABORATORY SERVICESToxic Greater than or equal to 80 mg/dL. NOTE: Whole blood values are approximately 10% to 15% lower than serum and plasma.[facility] LongviewCOM. METABOLIC PANEL (51240)2021-09-24 14:51:06 Test Item Value Reference Range Interpretation Comments NA (test code = 135 mmol/L 135-145 6655365634) K (test code = 4.2 mmol/L 3.5-5 1888328304) CL (test code = 105 mmol/L 98-108 3723591966) CO2 TOTAL (test code 23 mmol/L 23-31 = 1831360045) AGAP (test code = 2-16 0087162865) BUN (test code = 15 mg/dL 7-23 6114384843) GLUCOSE (test code = 94 mg/dL 70-110 1612106885) CREATININE (test code 0.89 mg/dL 0.6-1.25 = 0671917777) TOTAL BILI (test code 0.5 mg/dL 0.1-1.1 = 9393922992) CALCIUM (test code = 8.8 mg/dL 8.6-10.6 8331669500) T PROTEIN (test code 8.2 g/dL 6.3-8.2 = 0749721886) ALBUMIN (test code = 4.0 g/dL 3.5-5 2248797473) ALK PHOS (test code = 83 U/L 34-122 5505423690) ALTv (test code = 19 U/L 5-50 1742-6) AST(SGOT) (test code 37 U/L 13-40 = 7989015257) eGFR (test code = mL/min/1.73m2 3847209002) AMARJIT (test code = AMARJIT) Association of Glomerular Filtration Rate (GFR) and Staging of Kidney Disease* + + +- +| GFR (mL/min/1.73 m2) ?| With Kidney Damage ?| ?Without Kidney Damage+ ------+ ----+ ------+| ?>90 ?| ?Stage one ?| ? Normal ?+ -+ + -+| ?60-89 ?| ?Stage two ?| ? Decreased GFR ? + + +- +| ?30-59 ?| ?Stage three ?| ? Stage three ? + + +- +| ?15-29 ?| ?Stage four ? | ? Stage four ?+ -+ + -+| ?<15 (or dialysis) ? ?| ?Stage five ? | ? Stage five ?+ -+ + -+ *Each stage assumes the associated GFR level has been in effect for at least three months. ?Stages 1 to 5, with or without kidney disease, indicate chronic kidney disease. Notes: Determination of stages one and two (with eGFR >59mL/min/1.73 m2) requires estimation of kidney damage for at least three months as defined by structural or functional abnormalities of the kidney, manifested by either:Pathological abnormalities or Markers of kidney damage (including abnormalities in the composition of the blood or urine or abnormalities in imaging tests). [facility] WITH [id number] 14:38:29 Test Item Value Reference Range Interpretation Comments WBC (test code = See_Comment [Automated 0590-2) message] The sy stem which generated this result transmitted reference range : 4.20 - 10.70 10*3/?L. The reference range was not used to interpret this result as normal/abnormal . RBC (test code = See_Comment L [Automated 789-8) message] The sy stem which generated this result transmitted reference range : 4.26 - 5.52 10*6/?L. The reference range was not used to interpret this result as normal/abnormal . HGB (test code = 12.1 g/dL 12.2-16.4 L 718-7) HCT (test code = 37.9 % 38.4-49.3 L 4544-3) MCV (test code = 90.5 fL 81.7-95.6 787-2) MCH (test code = 28.9 pg 26.1-32.7 785-6) MCHC (test code = 31.9 g/dL 31.2-35 786-4) RDW-SD (test code = 47.3 fL 38.5-51.6 22096-7) RDW-CV (test code = 14.4 % 12.1-15.4 788-0) PLT (test code = See_Comment [Automated 777-3) message] The sy stem which generated this result transmitted reference range : 150 - 328 10*3/ ?L. The reference r rae was not used to interpret this result as normal/abnormal . MPV (test code = 10.1 fL 9.8-13 74075-9) NRBC/100 WBC (test See_Comment [Automat ed code = 8694963094) message] The system which generated this result transmitted reference range : 0.0 - 10.0 /100 WBCs. The refer ence range was not u sed to interpret th is result as normal/abnormal . NRBC x10^3 (test code See_Comment [Auto mated = 8578653094) message] The s ystem which generated this result transmitted reference range : 10*3/?L. The reference range was not used to interpret this result as normal/abnormal . GRAN MAT (NEUT) % 67.1 % (test code = 770-8) IMM GRAN % (test code 0.50 % = 2096995684) LYMPH % (test code = 20.1 % 736-9) MONO % (test code = 9.3 % 5905-5) EOS % (test code = 2.4 % 713-8) BASO % (test code = 0.6 % 706-2) GRAN MAT x10^3(ANC) 6.56 10*3/uL 1.99-6.95 (test code = 7558060283) IMM GRAN x10^3 (test 0.05 10*3/uL 0-0.06 code = 9447639072) LYMPH x10^3 (test code 1.97 10*3/uL 1.09-3.23 = 731-0) MONO x10^3 (test code 0.91 10*3/uL 0.36-1.02 = 742-7) EOS x10^3 (test code = 0.23 10*3/uL 0.06-0.53 711-2) BASO x10^3 (test code 0.06 10*3/uL 0.01-0.09 = 704-7) Lab Interpretation Abnormal (test code = 36488-2) [facility] LongviewXR Spine Lumbosacral 2 or 3 [id number] 17:33:04Patient: CANDACE MORALES Date/Time12/16/2019 16:57 CDTReason for ExamTraumaReportDictation location: Z08VJXJON SPINE, 2 VIEWSHISTORY: TRAUMA, PAINFINDINGS:5 nonrib-bearing lumbar vertebral bodies are noted in the midline without evidence of a fracture or subluxation. Mild facet arthrosis at L5-S1. Vascular calcifications. Calcific density seen in the right quadrant could relate to stool potentially carcinoid lesion.IMPRESSION:No lumbar spine fracture or subluxation.Grouping of probable calcifications in right lower quadrant reside within stool versus a potential calcified lesion such as a carcinoid tumor. This may be followed up with radiographs in a couple of days to assess for movement. Final Dictated by: MD Kati, Denae DT/TM: 12/16/2019 5:31 pmSigned by: MD Parikh SankamanSigned (Electronic Signature): 12/16/2019 5:33 pmXR Hip 1 View Left 2019-12-16 17:29:59Patient: CANDACE MORALES Date/Time12/16/2019 16:57 CDTReason for ExamTraumaReportExamination: Left hip seriesLocation code: Y91Eudioasqcp: NoneDiscussion:Clinical history is remarka ble for trauma. Frontal view of the pelvis and 2 additional views of the left hip are submitted. There is minimal angulation at the left iliopectineal line could represent acute or subacute injury. There is no acute bony deformity of the hip. Calcific density projects over the iliac crest on the right. Impression:Minimal angulation along the left iliopectineal line could represent acute or subacute injury. If there is high suspicion for injury, consider follow-up CT. Final Dictated by: MD Delgado James EDictated DT/TM: 12/16/2019 5:25 pmSigned by: MD Delgado James ESigned (Electronic Signature): 12/16/2019 5:29 pm- XR L-SPINE 2/3 [id number] 14:35:00 FAX: Jett Sorenson [phone] [place]: St: REG FAX: Tory Kruger MD [phone] ----- Name: CANDACE MORALES [facility] : 1960 Age/S: 58/M [address] [facility] Unit #: [id number] Loc: E.EXP [place], [place] Phys: Jett Altman [employer] [address] Acct: [id number] Dis Date: Status: REG ER PHONE #: [phone] Exam Date: 09/22/2018 1334 FAX #: [phone] Reason: fall EXAMS: CPT CODE: [id number] XR L-SPINE 2/3 VIEWS 06710 Site ID: [id number] HISTORY: Fall FINDINGS: 5 lumbar type vertebral bodies are present in normal alignment. No fracture or destructive bone lesion. Disc spaces are well-maintained,no significant spondylosis. Facet joints are mildly degenerated. Heavy atherosclerotic calcification is demonstrated within the distal abdominal aorta. IMPRESSION: No acute finding at 1434 Reported and signed by: Arun Lewis M.D. CC: Jett Altman PASSENGER [employer] BU[employer]; Tory Kruger MD Technologist: MIKE URBAN [facility] Date/Time/By: 09/22/2018 (8877) : By: ChandanaAJP6 PAGE 1 Signed Report FAX: Jett Sorenson [phone] [place]: St: REG FAX: Tory Kruger MD [phone] Name: CANDACE MORALES [facility] : 1960 Age/S: 58/M [address] [facility] Unit #: [id number] Loc: E.EXP [place], [place] Phys: [place] [address] Acct: [id number] Dis Date: Status: REG ER PHONE #: [phone] Exam Date: 09/22/2018 1334 FAX #: [phone] Reason: fall EXAMS: CPT CODE: [id number] XR L-SPINE 2/3 VIEWS 09619 (Continued) Orig Print D/T: S:09/22/2018 (5250) PAGE 2 Signed Report- XR HAND 3 + V [id number] 03:26:00 FAX: Ajit Henderson MD [phone] [place]: St: REG Name: CANDACE MORALES [facility] : 1960 Age/S: 57/M [address] [facility] [employer] Unit #: [id number] Loc: [address] Phys: [place] [address] Acct: [id number] Dis Date: Status: REG ER PHONE #: [phone] Exam Date: 06/25/2018 025 FAX #: [phone] Reason: lac with glass EXAMS: CPT CODE: [id number] XR HAND 3 + [place] [address] HISTORY: Male, 57 years of age with 5th finger laceration with glass Location code: R16 EXAM: LEFT HAND, 3 VIEWS COMPARISON: None pertinent FINDINGS: Soft tissue swelling and laceration seen around the proximal 5th finger. No subcutaneous foreign body. There is no acute fracture or dislocation. IMPRESSION: No foreign body or acute bony abnormality. at 0326 Reported and signed by: Rosalinda Rosenthal M.D. CC: Ajit Terrell MD Technologist: DONOVAN CHOE Trnmsrd Date/Time/By: 06/25/2018 (0326) : By: ChandanaCLW PAGE 1 Signed Report FAX: Ajit Henderson MD [phone] [place]: St: REG [facility] 1960 Age/S: 57/M [address] [facility] Unit #: [id number] Loc: [address] Phys: [place] [address] Acct: [id number] Dis Date: Status: REG ER PHONE #: [phone] Exam Date: 52 FAX #: [phone] Reason: lac with glass EXAMS: CPT CODE: [id number] XR HAND 3 + [place] [address] (Continued) Orig Print D/T: S: 06/25/2018 (0329) PAGE 2 Signed Report- CT CHEST W/O [id number] 14:39:00 FAX: Davonte Rodriguez [phone] [place]: St: ADM FAX: Ronald Britton MD [phone] ---- Name: CANDACE MORALES [facility] : 1960 Age/S: 57/M [address] [facility] Unit: [id number] Loc: [place], [place]: [place] [address] Acct: [id number] Dis Date: Status: ADM IN PHONE #: [phone] Exam Date: 04/12/2018 1338 FAX #: [phone] Reason: lung noudle EXAMS: CPT CODE: [id number] CT CHEST W/O CONTRAST 78726 REASON FOR EXAM: Lung nodule. CT of the chest, unenhanced. COMPARISON: September 17, 2016. All studies use automated exposure control, iterative reconstruction technique, and/oradjustment of mA and/or kV according to patient size for optimum radiation dose reduction. The rightlung apex shows fibrosis focally in similar distribution heading towards the hilum. Localized bronchiectasis changes. Similar distribution. No mass like components or consolidation. Bronchial tree intact. Lower lobes with normal aeration. Thyroid tissue is symmetric. Atherosclerotic calcifications of the aorta. Coronary artery calcifications are moderate. No pericardial or pleural effusion. The bone window settings show normal mineralization pattern. No bony destructive or sclerotic process. Old right rib fractures, well healed. Upper abdomen without any ascites. IMPRESSION: Well-inflated lungs. Mildly progressive right upper lobe scarring with some localized bronchiectasis. No suspicious infiltrates or parenchymal lung nodules. Location: U19 PAGE 1 Signed Report (CONTINUED) FAX: Davonte Rodriguez [phone] [place]: St: ADM FAX: Ronald Britton MD [phone] Name: CANDACE MORALES [facility] : 1960 Age/S: 57/M [address] [facility] Unit: [id number] [place], [place]: [place] [address] Acct: [id number] Dis Date: Status: ADM IN PHONE #: [phone] Exam Date: 1338 FAX #: [phone] Reason: lung noudle EXAMS: CPT CODE: [id number] CT CHEST W/O CONTRAST 52875 (Continued) at 1439 Reported and signed by: Ab Ross M.D. CC: Davonte Smalls MD; Ronald Guajardo echnologist: JOHN GORE Trnscrd Dt/Tm: 04/12/2018 (1439) Scott Orig Print D/T: S: 04/12/2018 (1443 PAGE 2 Signed ReportCBC W/AUTO [id number] 06:25:00 Test Item Value Reference Range Interpretation Comments WHITE BLOOD CELL (test code = WBC) 5.8 K/mm3 4.5-11.0 N RED BLOOD CELL (test code = RBC) 4.29 M/mm3 4.40-5.90 L HEMOGLOBIN (test code = HGB) 13.2 gm/dL 13.0-17.0 N HEMATOCRIT (test code = HCT) 40.5 % 36.0-48.0 N MEAN CELL VOLUME (test code = MCV) 94.4 UM3 80.0-94.0 H MEAN CELL HGB (test code = MCH) 30.8 UUG 25.5-32.5 N MEAN CELL HGB CONCETRATION (test 32.6 gm/dL 29.0-35.5 N code = MCHC) RED CELL DISTRIBUTION WIDTH (test 13.1 % 11.5-15.0 N code = RDW) PLATELET COUNT (test code = PLT) 162 K/mm3 150-400 N MEAN PLATELET VOLUME (test code = 9.6 fl 7.4-10.4 N MPV) NEUTROPHIL % (test code = NT%) 33.8 % 49.0-76.0 L LYMPHOCYTE % (test code = LY%) 36.4 % 23.0-38.0 N MONOCYTE % (test code = MO%) 11.6 % 1.0-10.0 H EOSINOPHIL % (test code = EO%) 17.5 % 1.0-5.0 H BASOPHIL % (test code = BA%) 0.5 % 0.0-1.0 N NEUTROPHIL # (test code = NT#) 2.0 K/mm3 2.4-6.3 L LYMPHOCYTE # (test code = LY#) 2.1 K/mm3 1.2-4.0 N MONOCYTE # (test code = MO#) 0.7 K/mm3 0.0-0.6 H EOSINOPHIL # (test code = EO#) 1.0 K/MM3 0.0-0.7 H BASOPHIL # (test code = BA#) 0.0 K/mm3 0.0-0.2 N MORPHOLOGY COMMENT (test code = NM MOC) PLATELET ESTIMATE (test code = ADQ PLTEST) Comments to Plaster Maker: Patient is currently in the ED waiting on a bed COMPREHENSIVE METABOLIC [id number] 05:12:00 Test Item Value Reference Range Interpretation Comments SODIUM (test code = NA) 137 mmol/l 134.0-147.0 N POTASSIUM (test code = K) 4.5 mmol/L 3.6-5.2 N CHLORIDE (test code = CL) 102 mmol/l 98.0-107.0 N CARBON DIOXIDE (test code = CO2) 29.2 mmol/l 21.0-33.0 N ANION GAP (test code = GAP) 10.3 0-20 N GLUCOSE (test code = GLU) 103 mg/dl 70.0-110.0 N BLOOD UREA NITROGEN (test code = 9 mg/dl 7.0-18.0 N BUN) CREATININE (test code = CREAT) 1.06 mg/dL 0.60-1.30 N GFR NON BLACK (test code = 77 mL/min 90-95 L GFRNONBLACK) GFR BLACK (test code = GFRBLACK) 93 mL/min 109-115 L TOTAL PROTEIN (test code = PROT) 7.1 gm/dL 6.4-8.2 N ALBUMIN (test code = ALB) 3.1 gm/dl 3.2-4.7 L CALCIUM (test code = CA) 9.1 mg/dl 8.0-10.5 N BILIRUBIN TOTAL (test code = 0.3 mg/dl 0.0-1.0 N BILT) SGOT/AST (test code = AST) 12 Units/L 15.0-37.0 L SGPT/ALT (test code = ALT) 24 Units/L 12.0-78.0 N ALKALINE PHOSPHATASE TOTAL (test 48 Units/L 50.0-136.0 L code = ALKP) Comments to Plaster Maker: Patient is currently in the ED waiting on a bedLIPID PROFILE (CORONARY RISK)2018-04-12 05:12:00 Test Item Value Reference Range Interpretation Comments TRIGLYCERIDES (test code = TRIG) 57 mg/dl 40.0-150.0 N CHOLESTEROL (test code = CHOL) 107 mg/dl 0.0-200.0 N CHOLESTEROL/HDL RATIO (test code = 2.6 RATIO CHOLHDL) HDL CHOLESTEROL (test code = HDL) 42 mg/dl 30.0-60.0 N LIPOPROTEIN LDL (test code = LDL) 60 mg/dl 70-130 L Comments to Plaster Maker: Patient is currently in the ED waiting on a bed [id number] 05:12:00 Test Item Value Reference Range Interpretation Comments MAGNESIUM (test code = MAG) 2.1 mg/dl 1.8-2.4 N Comments to Plaster Maker: Patient is currently in the ED waiting on a bedCARDIAC ENZYMES [id number] 05:12:00 Test Item Value Reference Range Interpretation Comments CREATINE KINASE (CK) 181 Units/L 39-308 N (test code = CK) CKMB (test code = 3.1 NG/ML 0.5-5.0 N DISREGARD CKMB INDEX CKMBT) CALCULATION WHE NEVER THE CKMBT ISREP ORTED <0.5 CKMB INDEX (test 1.7 0.0-2.5 N code = CKMBI) TROPONIN-I (test <0.02 NG/ML 0.00-0.06 N REFERENCE R RAE code = TROPI) TROPONIN I HEA LTHY INDIVIDUALS: <0 .06 ng/mL R/O ISCHE RONI: 0.07 - 0.60 ng/ mL CUT-OFF RANGE F OR AMI: 0.60 - 1.5 ng/m L : Specimen comments: Please see the initial specimen in the lab as the first draw on this series Comments to Plaster Maker: Please draw the 2nd specimen q4hrs after the first and the 3rd 8hrs after the first.Specimen comments: drawn Q4hrs then [id number] to Plaster Maker: Patient is currently in the ED waiting on a bedCBC W/AUTO [id number] 04:44:00 Test Item Value Reference Range Interpretation Comments WHITE BLOOD CELL (test code = WBC) 5.8 K/mm3 4.5-11.0 N RED BLOOD CELL (test code = RBC) 4.29 M/mm3 4.40-5.90 L HEMOGLOBIN (test code = HGB) 13.2 gm/dL 13.0-17.0 N HEMATOCRIT (test code = HCT) 40.5 % 36.0-48.0 N MEAN CELL VOLUME (test code = MCV) 94.4 UM3 80.0-94.0 H MEAN CELL HGB (test code = MCH) 30.8 UUG 25.5-32.5 N MEAN CELL HGB CONCETRATION (test 32.6 gm/dL 29.0-35.5 N code = MCHC) RED CELL DISTRIBUTION WIDTH (test 13.1 % 11.5-15.0 N code = RDW) PLATELET COUNT (test code = PLT) 162 K/mm3 150-400 N MEAN PLATELET VOLUME (test code = 9.6 fl 7.4-10.4 N MPV) NEUTROPHIL % (test code = NT%) 33.8 % 49.0-76.0 L LYMPHOCYTE % (test code = LY%) 36.4 % 23.0-38.0 N MONOCYTE % (test code = MO%) 11.6 % 1.0-10.0 H EOSINOPHIL % (test code = EO%) 17.5 % 1.0-5.0 H BASOPHIL % (test code = BA%) 0.5 % 0.0-1.0 N NEUTROPHIL # (test code = NT#) 2.0 K/mm3 2.4-6.3 L LYMPHOCYTE # (test code = LY#) 2.1 K/mm3 1.2-4.0 N MONOCYTE # (test code = MO#) 0.7 K/mm3 0.0-0.6 H EOSINOPHIL # (test code = EO#) 1.0 K/MM3 0.0-0.7 H BASOPHIL # (test code = BA#) 0.0 K/mm3 0.0-0.2 N Comments to Plaster Maker: Patient is currently in the ED waiting on a bedCARDIAC ENZYMES [id number] 01:11:00 Test Item Value Reference Range Interpretation Comments CREATINE KINASE (CK) 187 Units/L 39-308 N (test code = CK) CKMB (test code = 2.9 NG/ML 0.5-5.0 N DISREGARD CKMB INDEX CKMBT) CALCULATION WHE NEVER THE CKMBT ISREP ORTED <0.5 CKMB INDEX (test 1.6 0.0-2.5 N code = CKMBI) TROPONIN-I (test <0.02 NG/ML 0.00-0.06 N REFERENCE R RAE code = TROPI) TROPONIN I HEA LTHY INDIVIDUALS: <0 .06 ng/mL R/O ISCHE RONI: 0.07 - 0.60 ng/ mL CUT-OFF RANGE F OR AMI: 0.60 - 1.5 ng/m L : Specimen comments: Please see the initial specimen in the lab as the first draw on this series Comments to Plaster Maker: Please draw the 2nd specimen q4hrs after the first and the 3rd 8hrs after thefirst.Specimen comments: drawn Q4hrs then [id number] to Plaster Maker: Patient is currently in theED waiting on a bedDRUGS OF ABUSE SCREEN [id number] 21:57:00 Test Item Value Reference Range Interpretation Comments URN COCAINE (test code NEGATIVE NEGATIVE Cocai ne cut-off = COCAURN) concentration: 300 ng/mL URN CANNABINOIDS (test NEGATIVE NEGATIVE Canna binoids cut-off code = CANNABURN) concentrat ion: 50 ng/mL URN AMPHETAMINE (test NEGATIVE NEGATIVE Amphet amine cut-off code = AMPHETURN) concentrat ion: 1000 ng/mL URN BARBITURATE (test NEGATIVE NEGATIVE Barbit urate cut-off code = BARBITURN) concentrat ion: 200 ng/mL URN BENZODIAZEPINE NEGATIVE NEGATIVE Benzodiaz epine cut-off (test code = BENZOURN) mague ntration: 200 ng/mL URN OPIATES (test code NEGATIVE NEGATIVE Opiat es cut-off = OPIATURN) concentration: 200 ng/mL URN PHENCYCLIDINE (PCP) NEGATIVE NEGATIVE Phen cyclidine(PCP) (test code = PHENCURN) cut-o ff concentration: 25 ng/ml URN METHADONE (test NEGATIVE NEGATIVE Methadon e cut-off code = METHAURN) concentrati on: 300 ng/mL URINALYSIS [id number] 21:56:00 Test Item Value Reference Range Interpretation Comments UA COLOR (test code = COLU) YELLOW UA APPEARANCE (test code = CLEAR APPU) UA GLUCOSE DIPSTICK (test NORMAL mg/dl NORMAL code = DGLUU) UA BILIRUBIN DIPSTICK (test NEGATIVE mg/dL NEGATIVE code = BILU) UA KETONE DIPSTICK (test NEGATIVE mg/dl NEGATIVE code = KETU) UA SPECIFIC GRAVITY (test 1.010 1.000-1.030 code = SGU) UA BLOOD DIPSTICK (test NEGATIVE Mukund/micL NEGATIVE code = HEAVEN) UA PH DIPSTICK (test code = 6.0 5.0-9.0 KAYLEE) UA PROTEIN DIPSTICK (test NEGATIVE mg/dl NEGATIVE code = PROU) UA UROBILINIOGEN DIPSTICK NORMAL mg/dl NORMAL (test code = URO) UA NITRITE DIPSTICK (test NEGATIVE NEGATIVE code = ABNER) UA LEUKOCYTE ESTERASE NEGATIVE Bessie/micL NEGATIVE DIPSTICK (test code = LEUU) UA WBC (test code = WBCU) 0-2 WBC/HPF NONE UA RBC (test code = RBCU) 0-2 RBC/HPF 0-3 UA EPITHELIAL CELLS (test 2-5 EPI/HPF 0-3 A code = EPIU) UA BACTERIA (test code = FEW NONE BACU) URINALYSIS [id number] 21:41:00 Test Item Value Reference Range Interpretation Comments UA COLOR (test code = COLU) YELLOW UA APPEARANCE (test code = CLEAR APPU) UA GLUCOSE DIPSTICK (test NORMAL mg/dl NORMAL code = DGLUU) UA BILIRUBIN DIPSTICK (test NEGATIVE mg/dL NEGATIVE code = BILU) UA KETONE DIPSTICK (test NEGATIVE mg/dl NEGATIVE code = KETU) UA SPECIFIC GRAVITY (test 1.010 1.000-1.030 code = SGU) UA BLOOD DIPSTICK (test NEGATIVE Mukund/micL NEGATIVE code = HEAVEN) UA PH DIPSTICK (test code = 6.0 5.0-9.0 KAYLEE) UA PROTEIN DIPSTICK (test NEGATIVE mg/dl NEGATIVE code = PROU) UA UROBILINIOGEN DIPSTICK NORMAL mg/dl NORMAL (test code = URO) UA NITRITE DIPSTICK (test NEGATIVE NEGATIVE code = ABNER) UA LEUKOCYTE ESTERASE NEGATIVE Bessie/micL NEGATIVE DIPSTICK (test code = LEUU) UA WBC (test code = WBCU) WBC/HPF NONE UA RBC (test code = RBCU) RBC/HPF 0-3 UA EPITHELIAL CELLS (test EPI/HPF 0-3 code = EPIU) UA BACTERIA (test code = NONE BACU) COMPREHENSIVE METABOLIC [id number] 19:30:00 Test Item Value Reference Range Interpretation Comments SODIUM (test code = NA) 127 mmol/l 134.0-147.0 L POTASSIUM (test code = K) 3.4 mmol/L 3.6-5.2 L CHLORIDE (test code = CL) 90 mmol/l 98.0-107.0 L CARBON DIOXIDE (test code = CO2) 27.3 mmol/l 21.0-33.0 N ANION GAP (test code = GAP) 13.1 0-20 N GLUCOSE (test code = GLU) 123 mg/dl 70.0-110.0 H BLOOD UREA NITROGEN (test code = 9 mg/dl 7.0-18.0 N BUN) CREATININE (test code = CREAT) 1.24 mg/dL 0.60-1.30 N GFR NON BLACK (test code = 64 mL/min 90-95 L GFRNONBLACK) GFR BLACK (test code = GFRBLACK) 77 mL/min 109-115 L TOTAL PROTEIN (test code = PROT) 7.3 gm/dL 6.4-8.2 N ALBUMIN (test code = ALB) 3.4 gm/dl 3.2-4.7 N CALCIUM (test code = CA) 9.0 mg/dl 8.0-10.5 N BILIRUBIN TOTAL (test code = 0.6 mg/dl 0.0-1.0 N BILT) SGOT/AST (test code = AST) 13 Units/L 15.0-37.0 L SGPT/ALT (test code = ALT) 26 Units/L 12.0-78.0 N ALKALINE PHOSPHATASE TOTAL (test 50 Units/L 50.0-136.0 N code = ALKP) [id number] 19:30:00 Test Item Value Reference Range Interpretation Comments LIPASE (test code = LIP) 131 Units/L 65.0-230.0 N B-TYPE NATRIURETIC [id number] 19:30:00 Test Item Value Reference Range Interpretation Comments B-TYPE NATRIURETIC PEPTIDE (test 9.7 PG/ML 5-100 N code = BNP) CARDIAC ENZYMES [id number] 19:30:00 Test Item Value Reference Range Interpretation Comments CREATINE KINASE (CK) 208 Units/L 39-308 N (test code = CK) CKMB (test code = 2.0 NG/ML 0.5-5.0 N DISREGARD CKMB INDEX CKMBT) CALCULATION WHE NEVER THE CKMBT ISREP ORTED <0.5 CKMB INDEX (test 1.0 0.0-2.5 N code = CKMBI) TROPONIN-I (test <0.02 NG/ML 0.00-0.06 N REFERENCE R RAE code = TROPI) TROPONIN I HEA LTHY INDIVIDUALS: <0 .06 ng/mL R/O ISCHE RONI: 0.07 - 0.60 ng/ mL CUT-OFF RANGE F OR AMI: 0.60 - 1.5 ng/m L [id number] 19:30:00 Test Item Value Reference Range Interpretation Comments ALCOHOL (test code 0.00 gm/dL 0.00-0.00 N ETHYL ALC OHOL VALUES - = ALC) INTERPRETATION: 0.050 GM/DL - NOT INT OXICATED 0.100 GM/DL - INTOXICATED 0.3 50-0.450 GM/DL - SEVEREL Y INTOXICATED 0.5 50 GM/DL- FATAL INTOXICAT ION - XR CHEST 1 [id number] 19:27:00 FAX: Catarina Martinez MD [place]: St: PRE Name: CANDACE MORALES [facility] : 1960 Age/S: 57/M [address] [facility] Unit #: [id number] Loc: [place], [place]: [place] [id number] Acct: [id number] Dis Date: Status: PRE ER PHONE #: [phone] Exam Date: 04/11/20181918 FAX #: [phone] Reason: INGESTION EXAMS: CPT CODE: [id number] XR CHEST 1 V 55468 AP VIEW OF THE CHEST LOCATION:R16 CLINICAL HISTORY: Ingestion. COMPARISON: Chest radiograph 07/10/2017. FINDINGS: The cardiomediastinal shadow is within normal limits. The lungs are clear. No pleural fluids. No acute bony abnormalityis found. IMPRESSION: Unremarkable radiographic study of the chest. at 1927 Reported and signed by: Eugenia Zepeda M.D. CC: Catarina Lua MD Technologist: MANUEL RATLIFF Trnscrd Date/Time/By: 04/11/2018 (1926) : By: CoreyL PAGE 1 Signed Report FAX: Catarina Martinez MD [place]: St: PRE Name: CANDACE MORALES [facility] : 1960 Age/S: 57/M [address] [facility] Unit #: [id number] Loc: [place], [place]: [place] [id number] Acct: [id number] Dis Date: Status: PRE ER PHONE #: [phone] Exam Date: 04/11/20181918 FAX #: [phone] Reason: INGESTION EXAMS: CPT CODE: [id number] XR CHEST 1 V 31264 (Continued) Orig Print D/T:S: 04/11/2018 (193) PAGE 2 Signed ReportCOMPREHENSIVE METABOLIC [id number] 19:19:00 Test Item Value Reference Range Interpretation Comments SODIUM (test code = NA) mmol/l 134.0-147.0 POTASSIUM (test code = K) mmol/L 3.6-5.2 CHLORIDE (test code = CL) mmol/l 98.0-107.0 CARBON DIOXIDE (test code = CO2) mmol/l 21.0-33.0 ANION GAP (test code = GAP) 0-20 GLUCOSE (test code = GLU) mg/dl 70.0-110.0 BLOOD UREA NITROGEN (test code = mg/dl 7.0-18.0 BUN) CREATININE (test code = CREAT) mg/dL 0.60-1.30 GFR NON BLACK (test code = mL/min 90-95 GFRNONBLACK) GFR BLACK (test code = GFRBLACK) mL/min 109-115 TOTAL PROTEIN (test code = PROT) gm/dL 6.4-8.2 ALBUMIN (test code = ALB) gm/dl 3.2-4.7 CALCIUM (test code = CA) mg/dl 8.0-10.5 BILIRUBIN TOTAL (test code = BILT) mg/dl

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
--- NOTE | 2022-03-06 17:16 | RAD REPORT ---
EXAM DESCRIPTION: RAD - Foot Right 3 View - 03/06/2022 5:10 pm CLINICAL HISTORY: PAIN COMPARISON: No comparisons FINDINGS/IMPRESSION: No acute fracture. No malalignment. No significant focal degenerative changes.
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
[2022-03-06 17:52] VITALS: BP 160/96; TEMP 99; O2SAT 100
== END 2022-03-06 17:47 | disposition home or self-care (01) ==
LOC: ER 14:50
DX: M79.671 Pain in right foot (principal); M54.50 Low back pain, unspecified; F17.210 Nicotine dependence, cigarettes, uncomplicated; Z88.6 Allergy status to analgesic agent
CPT/HCPCS: 70450; 71250; 72125; 99283